=== PATIENT | male | born 1950 | race African-American/Black ===

== ENCOUNTER 2017-03-27 10:58 | Inpatient (IN) | payer MEDICARE, MEDICAID ==
[2017-03-27] VITALS (9 sets, daily range): BP systolic 145–225; BP diastolic 70–96; PULSE 58–95; RESP 16–20; TEMP 97.7–98.4; O2SAT 95–98
[~2017-03-27] VITALS: Ht 175.3 cm; Wt 80.8 kg
[~2017-03-27 10:58] MED LIST: LANTUSP SQ; NOVOLOGP2 SQ; RANI150 PO; VITA100017 PO; VITATAB11 PO; ZOFR4TAB3 SL
[2017-03-27] MEDS ORDERED: NOVOLOGSS SQ (11:14)
[2017-03-27] MEDS ORDERED: VITA10007 PO (11:14)
[2017-03-27] MEDS ORDERED: IBUP800T23 PO (11:14)
[2017-03-27] MEDS ORDERED: LANTUS2P SQ (11:14)
[2017-03-27] MEDS ORDERED: VITATAB11 PO (11:14)
[2017-03-27] MEDS ORDERED: MORPHINE SULFATE 4 MG/ML INJ IV PUSH ONE ×3 (12:00→17:00)
[2017-03-27] MEDS ORDERED: ASPIRIN 325 MG TAB PO ONE (12:00)
[2017-03-27] MEDS: SODIUM CHLORIDE 0.9% FLUSH 10 ML FLUSH IVF PRN ×2 (12:15→13:37)
[2017-03-27 12:41] LABS: AUTOMATED NEUTROPHIL # 3.2 TH/MM3 (1.8-7.7); BASOPHIL # 0.1 TH/MM3 (0-0.2); BASOPHIL % 0.9 % (0.0-2.0); EOSINOPHIL # 0.3 TH/MM3 (0-0.4); EOSINOPHIL % 4.5 % (0.0-4.0); HEMATOCRIT 41.1 % (39.0-51.0); HEMO FLAGS DIFF FINAL; LYMPH % 32.2 % (9.0-44.0); MEAN CELL VOLUME 83.3 FL (80.0-100.0); MEAN CORPUSCULAR HEMOGLOBIN 29.1 PG (27.0-34.0); MEAN CORPUSCULAR HGB CONC 34.9 % (32.0-36.0); MONO % 10.3 % (0.0-8.0); NEUT % 52.1 % (16.0-70.0); PLATELET COUNT 180 TH/MM3 (150-450); RED BLOOD COUNT 4.93 MIL/MM3 (4.50-5.90); RED CELL DISTRIBUTION WIDTH 13.5 % (11.6-17.2); WHITE BLOOD COUNT 6.1 TH/MM3 (4.0-11.0)
[2017-03-27 12:48] LABS: APTT (PATIENT) 25.3 SEC (24.3-30.1); PROTHROMBIN TIME - PATIENT 10.9 SEC (9.8-11.6)
[2017-03-27 13:00] LABS: BICARBONATE 26.1 MEQ/L (21.0-32.0); POTASSIUM 3.7 MEQ/L (3.5-5.1)
--- NOTE | 2017-03-27 13:52 | PD ---
HPI Chief Complaint: Musculoskeletal Complaint Time Seen by Provider: 11:32 Travel History International Travel<30 days: No Contact w/Intl Traveler<30days: No Traveled to known affect area: No History of Present Illness HPI The patient 67. He has had right lower extremity pain for a few months. It is now constant. It's worse with palpation. He feels pain from the middle portion of the left calf to the great toe. He's had no trauma. He denies a smoking history. He is diabetic. Pain is worse with ambulation. Patient is somewhat reserved and slow to answer questions in much detail thereby limiting history of present illness somewhat initially. 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) Cardiac Surgery: No Ear Surgery: No Endocrine Surgery: No Eye Surgery: No Genitourinary Surgery: No Gynecologic Surgery: No Oral Surgery: No Pacemaker: No Thoracic Surgery: No Other Surgery: Yes Social History Alcohol Use: Yes (RARELY) Tobacco Use: No Substance Use: No Allergies-Medications (Allergen,Severity, Reaction): Coded Allergies: No Known Allergies (Unverified , 03/27/17) Reported Meds & Prescriptions Reported Meds & Active Scripts Active Reported Ibuprofen 800 Mg Tab 800 Mg PO Q6HR PRN Lantus Inj (Insulin Glargine) 1,000 Unit/10 Ml Vial 15 Units SQ HS Novolog Inj (Insulin Aspart) 100 Unit/Ml Inj 30 Unit SQ BID Vitamin B Complex (B-Complex Vitamins) 1 Tab 1 Tab PO DAILY Vitamin C (Ascorbic Acid) 1,000 Mg Tab 3,000 Mg PO DAILY Review of Systems Except as stated in HPI: all other systems reviewed are Neg General / Constitutional: No: Fever Musculoskeletal: Positive: Pain Physical Exam Narrative GENERAL: 67-year-old male well-nourished well-developed no acute distress SKIN: Focused skin assessment warm/dry. HEAD: Atraumatic. Normocephalic. EYES: Pupils equal and round. No scleral icterus. No injection or drainage. ENT: No nasal bleeding or discharge. Mucous membranes pink and moist. NECK: Trachea midline. No JVD. CARDIOVASCULAR: Regular rate and rhythm. No murmur appreciated. RESPIRATORY: No accessory muscle use. Clear to auscultation. Breath sounds equal bilaterally. GASTROINTESTINAL: Abdomen soft, non-tender, nondistended. Hepatic and splenic margins not palpable. MUSCULOSKELETAL: No obvious deformities. No clubbing. No cyanosis. No edema. There is a palpable dorsalis pedis pulse on the right side. On the left side there is a palpable posterior tibialis pulse however there is no palpable dorsalis pedis pulse on the left side. The pulse is dopplerable at the right dorsalis pedis however on the left dorsal foot there is no audible pulse. On the left side there is a palpable posterior tibialis and palpable femoral artery pulse. The skin of both lower extremities is somewhat shiny. There is no warmth erythema or asymmetric swelling on either side. NEUROLOGICAL: Awake and alert. No obvious cranial nerve deficits. Motor grossly within normal limits. Normal speech. PSYCHIATRIC: Appropriate mood and affect; insight and judgment normal. Data Data Last Documented VS Vital Signs Date Time Temp Pulse Resp B/P Pulse Ox O2 Delivery O2 Flow Rate FiO2 03/27/17 13:30 73 19 171/90 95 Room Air 03/27/17 10:59 98.4 Vs reviewed Orders Basic Metabolic Panel (Bmp) (03/27/17 11:56) Complete Blood Count With Diff (03/27/17 11:56) Prothrombin Time / Inr (Pt) (03/27/17 11:56) Act Partial Throm Time (Ptt) (03/27/17 11:56) Ecg Monitoring (03/27/17 11:56) Iv Access Insert/Monitor (03/27/17 11:56) Oximetry (03/27/17 11:56) Oxygen Administration (03/27/17 11:56) Aspirin (Aspirin) (03/27/17 12:00) Morphine Inj (Morphine Inj) (03/27/17 12:00) Sodium Chloride 0.9% Flush (Ns Flush) (03/27/17 12:00) Cta Runoff W Iv Contrast W 3d (03/27/17 ) Morphine Inj (Morphine Inj) (03/27/17 13:30) Iohexol 350 Inj (Omnipaque 350 Inj) (03/27/17 14:51) Labs Laboratory Tests Test 03/27/17 12:20 White Blood Count 6.1 TH/MM3 Red Blood Count 4.93 MIL/MM3 Hemoglobin 14.4 GM/DL Hematocrit 41.1 % Mean Corpuscular Volume 83.3 FL Mean Corpuscular Hemoglobin 29.1 PG Mean Corpuscular Hemoglobin 34.9 % Concent Red Cell Distribution Width 13.5 % Platelet Count 180 TH/MM3 Mean Platelet Volume 8.7 FL Neutrophils (%) (Auto) 52.1 % Lymphocytes (%) (Auto) 32.2 % Monocytes (%) (Auto) 10.3 % Eosinophils (%) (Auto) 4.5 % Basophils (%) (Auto) 0.9 % Neutrophils # (Auto) 3.2 TH/MM3 Lymphocytes # (Auto) 2.0 TH/MM3 Monocytes # (Auto) 0.6 TH/MM3 Eosinophils # (Auto) 0.3 TH/MM3 Basophils # (Auto) 0.1 TH/MM3 CBC Comment DIFF FINAL Differential Comment Prothrombin Time 10.9 SEC Prothromb Time International 1.0 RATIO Ratio Activated Partial 25.3 SEC Thromboplast Time Sodium Level 140 MEQ/L Potassium Level 3.7 MEQ/L Chloride Level 105 MEQ/L Carbon Dioxide Level 26.1 MEQ/L Anion Gap 9 MEQ/L Blood Urea Nitrogen 14 MG/DL Creatinine 0.97 MG/DL Estimat Glomerular Filtration 93 ML/MIN Rate Random Glucose 167 MG/DL Calcium Level 9.3 MG/DL [facility] Medical Decision Making Medical Screen Exam Complete: Yes Emergency Medical Condition: Yes Medical Record Reviewed: Yes Differential Diagnosis Claudication, embolic disease, anemia, neuropathy Narrative Course CBC & BMP Diagram 03/27/17 12:20 INR 1.0 Carlos Keller MD March 27, 2017 13:52
[2017-03-27] MEDS ORDERED: IOHEXOL 350 MG/ML 10 ML VIAL (for RAD DIAG) IV ONE (14:51)
[2017-03-27] MEDS ORDERED: HEPARIN SODIUM - IV 10,000 UNITS/10 ML VIAL IV ONE ×2 (16:45→18:00)
[2017-03-27] MEDS ORDERED: HEPARIN-D5W INJ 250 ML IV SCH ×2 (16:45→18:00)
--- NOTE | 2017-03-27 17:18 | PD ---
Physical Exam Date Seen by Provider: March 27, 2017 Data Data Last Documented VS Vital Signs Date Time Temp Pulse Resp B/P Pulse Ox O2 Delivery O2 Flow Rate FiO2 03/27/17 18:01 65 20 163/85 97 Room Air 03/27/17 10:59 98.4 Orders Basic Metabolic Panel (Bmp) (03/27/17 11:56) Complete Blood Count With Diff (03/27/17 11:56) Prothrombin Time / Inr (Pt) (03/27/17 11:56) Act Partial Throm Time (Ptt) (03/27/17 11:56) Ecg Monitoring (03/27/17 11:56) Iv Access Insert/Monitor (03/27/17 11:56) Oximetry (03/27/17 11:56) Oxygen Administration (03/27/17 11:56) Aspirin (Aspirin) (03/27/17 12:00) Morphine Inj (Morphine Inj) (03/27/17 12:00) Sodium Chloride 0.9% Flush (Ns Flush) (03/27/17 12:00) Cta Runoff W Iv Contrast W 3d (03/27/17 ) Morphine Inj (Morphine Inj) (03/27/17 13:30) Iohexol 350 Inj (Omnipaque 350 Inj) (03/27/17 14:51) Heparin Inj (Heparin Inj) (03/27/17 16:45) Heparin Inj (Heparin Inj) (03/27/17 22:45) Heparin Inj (Heparin Inj) (03/27/17 22:45) Heparin-D5w Inj (Heparin-D5w Inj) (03/27/17 16:45) Morphine Inj (Morphine Inj) (03/27/17 17:00) Heparin Inj (Heparin Inj) (03/27/17 18:00) Heparin-D5w Inj (Heparin-D5w Inj) (03/27/17 18:00) Act Partial Throm Time (Ptt) (03/27/17 17:47) Prothrombin Time / Inr (Pt) (03/27/17 17:47) Cbc No Diff, Includes Plts (03/27/17 17:47) Act Partial Throm Time (Ptt) (03/28/17 00:47) Occult Blood (Hemoccult) Stool (03/27/17 17:47) Consult Vascular Surgery (03/27/17 ) (Hub Use Only)Inp Phy Cons/Ref (03/27/17 ) Insulin Human Reg Supp Scale (Novolin R (03/27/17 21:00) Dextrose 50% In John (Vial) Inj (D50w (Vi (03/27/17 18:30) Glucagon Inj (Glucagon Inj) (03/27/17 18:30) Admit To Inpatient (03/27/17 ) Code Status (03/27/17 18:24) Vital Signs (Adult) Q4H (03/27/17 18:24) Activity Oob Ad Kate (03/27/17 18:24) Bedside Glucose BELKIS.AC&HS (03/27/17 18:24) Diet Npo (03/27/17 Dinner) Sodium Chlor 0.9% 1000 Ml Inj (Ns 1000 M (03/27/17 18:24) Sodium Chloride 0.9% Flush (Ns Flush) (03/27/17 18:30) Sodium Chloride 0.9% Flush (Ns Flush) (03/27/17 21:00) Acetaminophen (Tylenol) (03/27/17 18:30) Ondansetron Inj (Zofran Inj) (03/27/17 18:30) Bisacodyl Supp (Dulcolax Supp) (03/27/17 18:30) Docusate Sodium (Colace) (03/27/17 18:30) Basic Metabolic Panel (Bmp) (03/28/17 06:00) Complete Blood Count With Diff (03/28/17 06:00) Prothrombin Time / Inr (Pt) (03/28/17 06:00) Resp Oxygen Samir C Titrat 1-4 L (03/27/17 ) Naloxone Inj (Narcan Inj) (03/27/17 18:30) Inpatient Certification (03/27/17 ) Labs Laboratory Tests Test 03/27/17 12:20 White Blood Count 6.1 TH/MM3 Red Blood Count 4.93 MIL/MM3 Hemoglobin 14.4 GM/DL Hematocrit 41.1 % Mean Corpuscular Volume 83.3 FL Mean Corpuscular Hemoglobin 29.1 PG Mean Corpuscular Hemoglobin 34.9 % Concent Red Cell Distribution Width 13.5 % Platelet Count 180 TH/MM3 Mean Platelet Volume 8.7 FL Neutrophils (%) (Auto) 52.1 % Lymphocytes (%) (Auto) 32.2 % Monocytes (%) (Auto) 10.3 % Eosinophils (%) (Auto) 4.5 % Basophils (%) (Auto) 0.9 % Neutrophils # (Auto) 3.2 TH/MM3 Lymphocytes # (Auto) 2.0 TH/MM3 Monocytes # (Auto) 0.6 TH/MM3 Eosinophils # (Auto) 0.3 TH/MM3 Basophils # (Auto) 0.1 TH/MM3 CBC Comment DIFF FINAL Differential Comment Prothrombin Time 10.9 SEC Prothromb Time International 1.0 RATIO Ratio Activated Partial 25.3 SEC Thromboplast Time Sodium Level 140 MEQ/L Potassium Level 3.7 MEQ/L Chloride Level 105 MEQ/L Carbon Dioxide Level 26.1 MEQ/L Anion Gap 9 MEQ/L Blood Urea Nitrogen 14 MG/DL Creatinine 0.97 MG/DL Estimat Glomerular Filtration 93 ML/MIN Rate Random Glucose 167 MG/DL Calcium Level 9.3 MG/DL [facility] Medical Record Reviewed: Yes Supervised Visit with JESSY: No Interpretation(s) Vital Signs Date Time Temp Pulse Resp B/P Pulse Ox O2 Delivery O2 Flow Rate FiO2 03/27/17 15:35 62 17 145/70 98 Room Air 03/27/17 13:30 73 19 171/90 95 Room Air 03/27/17 12:20 96 Room Air 03/27/17 12:20 17 03/27/17 12:20 17 96 Room Air 03/27/17 10:59 98.4 95 20 187/90 97 Room Air Laboratory Tests Test 03/27/17 12:20 White Blood Count 6.1 TH/MM3 (4.0-11.0) Red Blood Count 4.93 MIL/MM3 (4.50-5.90) Hemoglobin 14.4 GM/DL (13.0-17.0) Hematocrit 41.1 % (39.0-51.0) Mean Corpuscular Volume 83.3 FL (80.0-100.0) Mean Corpuscular Hemoglobin 29.1 PG (27.0-34.0) Mean Corpuscular Hemoglobin 34.9 % Concent (32.0-36.0) Red Cell Distribution Width 13.5 % (11.6-17.2) Platelet Count 180 TH/MM3 (150-450) Mean Platelet Volume 8.7 FL (7.0-11.0) Neutrophils (%) (Auto) 52.1 % (16.0-70.0) Lymphocytes (%) (Auto) 32.2 % (9.0-44.0) Monocytes (%) (Auto) 10.3 % (0.0-8.0) Eosinophils (%) (Auto) 4.5 % (0.0-4.0) Basophils (%) (Auto) 0.9 % (0.0-2.0) Neutrophils # (Auto) 3.2 TH/MM3 (1.8-7.7) Lymphocytes # (Auto) 2.0 TH/MM3 (1.0-4.8) Monocytes # (Auto) 0.6 TH/MM3 (0-0.9) Eosinophils # (Auto) 0.3 TH/MM3 (0-0.4) Basophils # (Auto) 0.1 TH/MM3 (0-0.2) CBC Comment DIFF FINAL Differential Comment Prothrombin Time 10.9 SEC (9.8-11.6) Prothromb Time International 1.0 RATIO Ratio Activated Partial 25.3 SEC Thromboplast Time (24.3-30.1) Sodium Level 140 MEQ/L (136-145) Potassium Level 3.7 MEQ/L (3.5-5.1) Chloride Level 105 MEQ/L (98-107) Carbon Dioxide Level 26.1 MEQ/L (21.0-32.0) Anion Gap 9 MEQ/L (5-15) Blood Urea Nitrogen 14 MG/DL (7-18) Creatinine 0.97 MG/DL (0.60-1.30) Estimat Glomerular Filtration 93 ML/MIN (>89) Rate Random Glucose 167 MG/DL (74-106) Calcium Level 9.3 MG/DL (8.5-10.1) Narrative Course Patient signed out to me by Dr. Keller, patient pending CTA, admission to the hospital and vascular surgery consult. Patient is a 67 year old male with history of diabetes currently being treated on insulin, presents to emergency room with complaints of pains to his leftlower extremity for the past 2 months. Patient reports that pain has been constant, reports that today, he decided to be evaluated as he can't take the pain. Patient reports that pain is worse in left right big toe. On evaluation, there is no palpable pulses to his left lower extremity. Patient is currently pending CTA, vascular surgery consult as well as admission to hospitalist. Last Impressions Aorta w/Runoff CTA 03/27/17 0000 Signed Impressions: Service Date/Time: , March 27, 2017 14:33 - CONCLUSION: Moderate to severe lower extremity atherosclerotic vascular disease. Segmental occlusion of the distal left superficial femoral artery. Moderate to severe segmental stenosis of the mid to distal left popliteal artery. Right SFA plaques with moderate stenoses. Severe infrapopliteal runoff disease with single vessel runoff seen bilaterally as described. Costa Chen MD Case reviewed with Dr. Kasper who will see patient in consult. Call made to medicine service for admission case reviewed with Dr. Salcedo who accepts pt to service Diagnosis Primary Impression: Superficial femoral artery occlusion Admitting Information Admitting Physician Requests: Admit Mirna Xie DO March 27, 2017 17:18
--- NOTE | 2017-03-27 17:26 | RADRPT ---
EXAM DATE/TIME: 03/27/2017 14:33 [facility] COMPARISON: No previous studies available for comparison. INDICATIONS : Left leg pain. IV CONTRAST: 99 cc Omnipaque 350 (iohexol) IV RADIATION DOSE: 8.07 CTDIvol (mGy) MEDICAL HISTORY : Diabetes mellitus type 2. SURGICAL HISTORY : None. ENCOUNTER: Initial ACUITY: 1 day PAIN SCALE: 6/10 LOCATION: Left lower leg. TECHNIQUE: Volumetric scanning was performed using a multi-row detector CT scanner. The data was post processed with a variety of visualization algorithms including full volume maximum intensity projection, multi -planar sliding thin slab reformation, curved planar reformation, and surface rendering techniques. Using automated exposure control and adjustment of the mA and/or kV according to patient size, radiat ion dose was kept as low as reasonably achievable to obtain optimal diagnostic quality images. FINDINGS: ABDOMINAL AORTA: Moderate calcific atherosclerotic vascular disease is seen throughout the abdominal aorta. Smooth andrez rowing of the celiac artery at its origin secondary to the arcuate ligament. The superior mesenteric artery is widely patent. 2 renal arteries are identified each kidney. There is a main renal artery an d an accessory renal artery to each kidney. The left main renal artery demonstrates mild narrowing at its origin. BIFURCATION: Calcified but patent. RIGHT PELVIS: Mild to moderate eccentric calcified plaque is present. There is no evidence of significant stenosis involving the right common or external iliac arteries. LEFT PELVIS: Mild to moderate eccentric calcified plaque is present. There is no evidence of significant stenosis involving the right common or external iliac arteries. RIGHT THIGH: Moderate described changes are seen in the femoral vessels. There are focal moderate stenotic lesions identified at the origin the SFA, proximal SFA and distal SFA which are in the 50-60% diameter steno tic range. LEFT THIGH: Moderate to severe heart disease is present in the left femoral vessels. There is no more regularity with mild stenotic lesions throughout the proximal to mid SFA. Segmental occlusion of the distal SFA at the adductor canal is identified. The fluid segment is approximately 4 cm in length. There is mika nstitution of the proximal popliteal artery. RIGHT KNEE: The right popliteal artery is small but otherwise patent. LEFT KNEE: Proximal left 2 arteries patent. There is marked severe segmental narrowing of the mid and distal pop liteal artery. RIGHT LEG: Single-vessel runoff consisting of the peroneal artery. The distal peroneal artery provides collatera l flow to the mid to distal left posterior tibial artery. The anterior tibial artery is occluded prox imally. LEFT LEG: Single-vessel runoff consisting of the posterior tibial artery is identified. Extensive occlusive dis ease is identified in the peroneal and anterior tibial arteries. CONCLUSION: Moderate to severe lower extremity atherosclerotic vascular disease. Segmental occlusion of the distal left superficial femoral artery. Moderate to severe segmental stenosis of the mid to distal left popliteal artery. Right SFA plaques with moderate stenoses. Severe infrapopliteal runoff disease with single vessel runoff seen bilaterally as described. Costa Chen MD on March 27, 2017 at 17:05 Board Certified Radiologist. This report was verified electronically.
[2017-03-27] MEDS ORDERED: NALOXONE HCL 0.4 MG/ML AMP IV PRN (18:30)
[2017-03-27] MEDS ORDERED: ACETAMINOPHEN 325 MG TAB PO PRN (18:30)
[2017-03-27] MEDS ORDERED: BISACODYL 10 MG SUPP RECTAL PRN (18:30)
[2017-03-27] MEDS ORDERED: GLUCAGON 1 MG/ML VIAL OTHER PRN (18:30)
[2017-03-27] MEDS ORDERED: SODIUM CHLORIDE 0.9% FLUSH 10 ML FLUSH IV FLUSH PRN (18:30)
[2017-03-27] MEDS ORDERED: ONDANSETRON HCL 4 MG/2 ML VIAL IVP PRN (18:30)
[2017-03-27] MEDS ORDERED: DEXTROSE 50% IN WATER 50 ML VIAL(D50) IV PUSH PRN (18:30)
--- NOTE | 2017-03-27 18:32 | HHI.HP ---
[facility] Unknown Admission Diagnosis SFA Occlusion Diagnoses: Chief Complaint: left leg pain/Claudication Travel History International Travel<30 Days: No Contact w/Intl Traveler <30 Da: No Traveled to Known Affected Are: No History of Present Illness This is a pleasant 67 y/o Male who came to ER with Right Lower extremity pain for a few month, now is constant pain, worse on palpation Middle portion of the left calf to the great toe, no trauma, denies smoking history but has Diabetes mellitus II, pain worse on ambulation as per patient he has pain on his left leg for the last two months, worsening Claudication, today decided to come to ER for Evaluation status post Run off found Moderate to Severe lower extremity atherosclerotic vascular disease, segmental occlusion of the Distal left superficial femoral artery, Moderate to severe segmental stenosis of the mid to distal left popliteal artery, Right SFA plaques with moderate stenosis. seen by Vascular water rights specialist for Angiography and Balloon angioplasty and stent placement. 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 Reported Medications Reported Meds & Active Scripts Active Reported Ibuprofen 800 Mg Tab 800 Mg PO Q6HR PRN Lantus Inj (Insulin Glargine) 1,000 Unit/10 Ml Vial 15 Units SQ HS Novolog Inj (Insulin Aspart) 100 Unit/Ml Inj 30 Unit SQ BID Vitamin B Complex (B-Complex Vitamins) 1 Tab 1 Tab PO DAILY Vitamin C (Ascorbic Acid) 1,000 Mg Tab 3,000 Mg PO DAILY Allergies: Coded Allergies: No Known Allergies (Unverified , 03/27/17) Active Ordered Medications Current Medications Medications (Trade) Dose Ordered Sig/Marita Route Start Time Stop Time Status Last Admin (Heparin-D5W Inj) 250 ml @ 0 mls/hr TITRATE IV 03/27/17 18:00 03/27/17 17:59 (D50w (Vial) Inj) 25 ml UNSCH PRN IV PUSH 03/27/17 18:30 Glucagon 1 mg 1 mg UNSCH PRN OTHER 03/27/17 18:30 (NS 1000 ml Inj) 1,000 ml @ 100 mls/hr Q10H IV 03/27/17 18:24 (NS Flush) 2 ml UNSCH PRN IV FLUSH 03/27/17 18:30 (NS Flush) 2 ml BID IV FLUSH 03/27/17 21:00 (Tylenol) 650 mg Q4H PRN PO 03/27/17 18:30 (Zofran Inj) 4 mg Q6H PRN IVP 03/27/17 18:30 (Dulcolax Supp) 10 mg DAILY PRN RECTAL 03/27/17 18:30 (Colace) 100 mg Q12H PO 03/27/17 21:00 (Narcan Inj) 0.4 mg UNSCH PRN IV 03/27/17 18:30 Family History Father with DM II Social History Occasional alcohol abuse Marijuana abuse Physical Exam Vital Signs Vital Signs Date Time Temp Pulse Resp B/P Pulse Ox O2 Delivery O2 Flow Rate FiO2 03/27/17 18:01 65 20 163/85 97 Room Air 03/27/17 15:35 62 17 145/70 98 Room Air 03/27/17 13:30 73 19 171/90 95 Room Air 03/27/17 12:20 96 Room Air 03/27/17 12:20 17 03/27/17 12:20 17 96 Room Air 03/27/17 10:59 98.4 95 20 187/90 97 Room Air Physical Exam GENERAL: No acute distress. SKIN: Focused skin assessment warm/dry. HEAD: Atraumatic. Normocephalic. EYES: Pupils equal and round. No scleral icterus. No injection or drainage. ENT: No nasal bleeding or discharge. Mucous membranes pink and moist. NECK: Trachea midline. No JVD. CARDIOVASCULAR: Regular rate and rhythm. No murmur appreciated. RESPIRATORY: No accessory muscle use. Clear to auscultation. Breath sounds equal bilaterally. GASTROINTESTINAL: Abdomen soft, non-tender, nondistended. Hepatic and splenic margins not palpable. MUSCULOSKELETAL: No obvious deformities. No clubbing. No cyanosis. No edema. There is a palpable dorsalis pedis pulse on the right side. On the left side there is a palpable posterior tibialis pulse however there is no palpable dorsalis pedis pulse on the left side. The skin of both lower extremities is somewhat shiny. There is no warmth erythema or asymmetric swelling on either side. NEUROLOGICAL: Awake and alert. No obvious cranial nerve deficits. Motor grossly within normal limits. Normal speech. PSYCHIATRIC: Appropriate mood and affect; insight and judgment normal. Laboratory Laboratory Tests Test 03/27/17 12:20 White Blood Count 6.1 Red Blood Count 4.93 Hemoglobin 14.4 Hematocrit 41.1 Mean Corpuscular Volume 83.3 Mean Corpuscular Hemoglobin 29.1 Mean Corpuscular Hemoglobin 34.9 Concent Red Cell Distribution Width 13.5 Platelet Count 180 Mean Platelet Volume 8.7 Neutrophils (%) (Auto) 52.1 Lymphocytes (%) (Auto) 32.2 Monocytes (%) (Auto) 10.3 Eosinophils (%) (Auto) 4.5 Basophils (%) (Auto) 0.9 Neutrophils # (Auto) 3.2 Lymphocytes # (Auto) 2.0 Monocytes # (Auto) 0.6 Eosinophils # (Auto) 0.3 Basophils # (Auto) 0.1 CBC Comment DIFF FINAL Differential Comment Prothrombin Time 10.9 Prothromb Time International 1.0 Ratio Activated Partial 25.3 Thromboplast Time Sodium Level 140 Potassium Level 3.7 Chloride Level 105 Carbon Dioxide Level 26.1 Anion Gap 9 Blood Urea Nitrogen 14 Creatinine 0.97 Estimat Glomerular Filtration 93 Rate Random Glucose 167 Calcium Level 9.3 Result Diagram: 03/27/17 1220 03/27/17 1220 Imaging Last Impressions Aorta w/Runoff CTA 03/27/17 0000 Signed Impressions: Service Date/Time: March 14:33 - CONCLUSION: Moderate to severe lower extremity atherosclerotic vascular disease. Segmental occlusion of the distal left superficial femoral artery. Moderate to severe segmental stenosis of the mid to distal left popliteal artery. Right SFA plaques with moderate stenoses. Severe infrapopliteal runoff disease with single vessel runoff seen bilaterally as described. Costa Chen MD Assessment and Plan Assessment and Plan 1. 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 Moderate to Severe segmental stenosis of the mid to distal left popliteal artery. discussed at this time with Vascular insurance law specialist doctor David Kasper and recommended to stop Heparin and continue Plavix and Aspirin, will Schedule for surgery Next Friday03/31/17 Angiography with Balloon angioplasty and stent placement Poor residential prognosis, may end in BKA. full Cardiac workup continue. 2. DM II to continue sliding scale Hemoglobin A1C 3. Peripheral Neuropathy DVT prophylaxis with Lovenox Code Status Full code Discussed Condition With Patient, ER specialist I had the Pleasure to talk about this case, receive input and recommendations by Vascular [facility] Physician Doctor David Ham. Physician Certification 2 Midnight Certification Type: Admission for Inpatient Services Order for Inpatient Services The services are ordered in accordance with Medicare regulations or non- Medicare payer requirements, as applicable. In the case of services not specified as inpatient-only, they are appropriately provided as inpatient services in accordance with the 2-midnight benchmark. Estimated LOS (days): 3 days is the estimated time the patient will need to remain in the hospital, assuming treatment plan goals are met and no additional complications. Post-Hospital Plan: Not yet determined Vaibhav Devine MD March 27, 2017 18:32
--- NOTE | 2017-03-27 19:29 | PD.CAR.PN ---
CVT Progress Note Subjective/Hospital Course: Patient evaluated and examined Full consult dictated Thanks J Objective: Vital Signs Date Time Temp Pulse Resp B/P Pulse Ox O2 Delivery O2 Flow Rate FiO2 03/27/17 19:22 61 18 188/96 98 Room Air 03/27/17 18:46 97 21 03/27/17 18:01 65 20 163/85 97 Room Air 03/27/17 15:35 62 17 145/70 98 Room Air 03/27/17 13:30 73 19 171/90 95 Room Air 03/27/17 12:20 96 Room Air 03/27/17 12:20 17 03/27/17 12:20 17 96 Room Air 03/27/17 10:59 98.4 95 20 187/90 97 Room Air Labs: Laboratory Tests Test 03/27/17 12:20 White Blood Count 6.1 TH/MM3 (4.0-11.0) Red Blood Count 4.93 MIL/MM3 (4.50-5.90) Hemoglobin 14.4 GM/DL (13.0-17.0) Hematocrit 41.1 % (39.0-51.0) Mean Corpuscular Volume 83.3 FL (80.0-100.0) Mean Corpuscular Hemoglobin 29.1 PG (27.0-34.0) Mean Corpuscular Hemoglobin 34.9 % Concent (32.0-36.0) Red Cell Distribution Width 13.5 % (11.6-17.2) Platelet Count 180 TH/MM3 (150-450) Mean Platelet Volume 8.7 FL (7.0-11.0) Neutrophils (%) (Auto) 52.1 % (16.0-70.0) Lymphocytes (%) (Auto) 32.2 % (9.0-44.0) Monocytes (%) (Auto) 10.3 % (0.0-8.0) Eosinophils (%) (Auto) 4.5 % (0.0-4.0) Basophils (%) (Auto) 0.9 % (0.0-2.0) Neutrophils # (Auto) 3.2 TH/MM3 (1.8-7.7) Lymphocytes # (Auto) 2.0 TH/MM3 (1.0-4.8) Monocytes # (Auto) 0.6 TH/MM3 (0-0.9) Eosinophils # (Auto) 0.3 TH/MM3 (0-0.4) Basophils # (Auto) 0.1 TH/MM3 (0-0.2) CBC Comment DIFF FINAL Differential Comment Prothrombin Time 10.9 SEC (9.8-11.6) Prothromb Time International 1.0 RATIO Ratio Activated Partial 25.3 SEC Thromboplast Time (24.3-30.1) Sodium Level 140 MEQ/L (136-145) Potassium Level 3.7 MEQ/L (3.5-5.1) Chloride Level 105 MEQ/L (98-107) Carbon Dioxide Level 26.1 MEQ/L (21.0-32.0) Anion Gap 9 MEQ/L (5-15) Blood Urea Nitrogen 14 MG/DL (7-18) Creatinine 0.97 MG/DL (0.60-1.30) Estimat Glomerular Filtration 93 ML/MIN (>89) Rate Random Glucose 167 MG/DL (74-106) Calcium Level 9.3 MG/DL (8.5-10.1) Result Diagram: 03/27/17 1220 03/27/17 1220 David Kasper MD March 27, 2017 19:29
[2017-03-27] MEDS: SODIUM CHLOR 0.9% 1000 ML INJ 1,000 ML IV SCH (19:44)
--- NOTE | 2017-03-27 19:54 | MB ---
cc: MD KRISTOPHER,BANNER DATE OF CONSULTATION: 03/27/2017. REASON FOR CONSULTATION: Peripheral vascular disease and ischemia of the left leg. HISTORY OF PRESENT ILLNESS: This 67-year-old black male comes to the emergency room stating that for about two months he has had pain in his left foot. He states that after about 20 to 25 years, the calf tightens up and he cannot walk any further consistent with a severe claudication. The patient is a severe known diabetic and is not very compliant with his care. He smokes pot. PAST MEDICAL HISTORY: The past medical history is that of: 1. Diabetes mellitus. He takes Lantus and NovoLog for his diabetes. 2. Hypertension. The patient is not treating is hypertension. PAST SURGICAL HISTORY: Partial gastrectomy for a GIST tumor at some point in the past, the patient does not exactly know when SOCIAL HISTORY: The patient drinks socially. He uses pot. PHYSICAL EXAMINATION: GENERAL: The physical examination reveals a 67-year-old male in no acute distress. HEAD, EYES, EARS, NOSE, THROAT: Normocephalic. No trauma to the head. Pupils equal and reactive. Extraocular muscles intact. NECK: The neck is supple. Bilateral carotid pulses. Bilateral carotid bruits 3/6. CHEST: Bilateral breath sounds. HEART: Regular rhythm. No murmurs. ABDOMEN: Abdomen is soft. No rebound or guarding. No masses. Scars from previous surgery. The patient has no masses in the anterior abdominal wall or anywhere else that indicate recurrence of his GIST. The groins are normal. EXTREMITIES: The patient actually has palpable femoral pulses and then below the level of the groin there is nothing palpable. On the left side, the patient has a very, very weak popliteal pulse by Doppler and it took a while to detect the posterior tibial pulse very weak. The dorsalis pedis is gone. On the right side, the patient has a popliteal pulse which is a little better than on the left side and then no distal pulses whatsoever, although the foot looks better than on the left foot. There are no ulcerations. NEUROLOGIC: The patient is grossly intact. IMPRESSION AND RECOMMENDATIONS: I reviewed laboratory and diagnostic procedures. The gentleman has severe peripheral vascular disease. His inflow is relatively okay and then coming down to the SFA on the right side the patient has multilevel stenosis of the SFA but no occlusion. The limiting factor on the right is the fact that he only has a peroneal artery runoff to the foot with then some reconstitution over by the foot but this does not look great. On the left side, the patient has again multilevel stenosis of the SFA and then occlusion of the SFA and adductor canal with reconstitution of the popliteal, again the limiting factor is that plus the runoff to the foot via posterior tibial artery which does not look great either with multilevel ratty stenosis. At this point, there are limited options. I explained this to the patient at really length sitting down and multiple times repeating what I told him to make sure he understood. The only option at this point is to try to open up the SFA and somewhat improve the flow on the left side and make it into continuity with the popliteal artery and then the posterior tibial artery. Percutaneous balloon angioplasty would be the best way to go and possibly small stent placement. If that is not successful, the only other option is a bypass femoral-to- popliteal; however, with a one-vessel runoff to the foot via he posterior tibial I would probably venture to do a bypass with in situ vein rather than a graft. Either way, the patient is at high risk of losing his left leg. While we can make some patients better with surgery, there is certainly a small chance that we can make it worse and if the patient embolizes down into his posterior tibial artery, he will for sure lose his leg. I have explained this to the patient at length and he will think about it. At this point, he wants to leave against medical advice, apparently to do something else at a hospital and I am not sure if he is going to be here tomorrow. All things being equal, he should have a cardiac workup. I will order a carotid ultrasound, and then based on all these studies, will decide which way to go, but the above are the only two options. Thank you for the referral. CRITICAL CARE TIME: Forty (40) minutes. David LUNDBERG/CAMACHO /7:26 PM /7:34 PM
[2017-03-27] MEDS: SODIUM CHLORIDE 0.9% FLUSH 10 ML FLUSH IV FLUSH SCH (21:00)
[2017-03-27] MEDS: INSULIN NovoLIN REGULAR SUPPLEMENTAL SCALE SQ SCH (21:00)
[2017-03-27 21:10] LABS: FREE T4 1.08 NG/DL (0.76-1.46); LDL CHOLESTEROL 150 MG/DL (0-99)
--- NOTE | 2017-03-27 21:40 | RADRPT ---
EXAM DATE/TIME: 03/27/2017 21:09 [facility] COMPARISON: No previous studies available for comparison. INDICATIONS : Stenosis. Preop. MEDICAL HISTORY : Diabetes mellitus type 2. Stomach tumor. 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 ENCOUNTER: Initial ACUITY: 2 months PAIN SCORE: 0/10 LOCATION: Bilateral neck PEAK SYSTOLIC VELOCITIES (cm/sec): ICA/CCA RATIO: Right: 1.4 Left: 1.3 ICA: Right: 82 Left: 74 CCA: Right: 57 Left: 58 ECA: Right: 56 Left: 80 VERTEBRAL: Right: 37 antegrade Left: 53 antegrade Elevated flow velocities and ICA/CCA ratios have been found to correlate with increased degrees of vessel stenosis, calculated as percentage of diameter relative to a normal segment of distal ICA/CCA FINDINGS: RIGHT CAROTID: No significant stenosis is visualized. The waveforms are within normal limits. LEFT CAROTID: No significant stenosis is visualized. The waveforms are within normal limits. VERTEBRAL ARTERIES: Antegrade flow is seen in both vertebral arteries. MISCELLANEOUS: None. CONCLUSION: No evidence of flow-limiting carotid stenosis. Andrea Ryan MD on March 27, 2017 at 21:37 Board Certified Radiologist. This report was verified electronically.
[2017-03-27] MEDS ORDERED: HEPARIN SODIUM - IV 10,000 UNITS/10 ML VIAL IV PRN ×2 (22:45)
[2017-03-27 22:49] LABS: HEMOGLOBIN A1a 0.3 %; HEMOGLOBIN A1b 0.5 %; HEMOGLOBIN F 1.2 %
[2017-03-27 22:50] LABS: HEMOGLOBIN Ao 48.6 %; HEMOGLOBIN LA1C 1.7 %; HEMOGLOBIN P3 3.2 %
[2017-03-27] MEDS: DOCUSATE SODIUM 100 MG CAP PO SCH (22:59)
[2017-03-27] MEDS: CLOPIDOGREL 75 MG TAB PO SCH (22:59)
[2017-03-27] MEDS: ENOXAPARIN SODIUM 40 MG/0.4 ML SYRINGE SQ SCH (23:00)
[2017-03-27] MEDS: MORPHINE SULFATE 4 MG/ML INJ IV PUSH PRN (23:47)
[2017-03-28] VITALS (16 sets, daily range): BP systolic 129–201; BP diastolic 59–98; PULSE 65–110; RESP 16–20; TEMP 97.7–98.4; O2SAT 88–97
[2017-03-28] MEDS: SODIUM CHLOR 0.9% 1000 ML INJ 1,000 ML IV SCH (04:24)
[2017-03-28] MEDS: hydrALAZINE HCL 20 MG/ML VIAL IV PUSH PRN ×2 (05:38→06:34)
[2017-03-28] MEDS: MORPHINE SULFATE 4 MG/ML INJ IV PUSH PRN ×5 (06:02→21:25)
[2017-03-28] MEDS: INSULIN NovoLIN REGULAR SUPPLEMENTAL SCALE SQ SCH ×4 (06:29→22:54)
[2017-03-28] MEDS: SODIUM CHLORIDE 0.9% FLUSH 10 ML FLUSH IV FLUSH SCH ×2 (09:00→21:00)
[2017-03-28] MEDS: DOCUSATE SODIUM 100 MG CAP PO SCH ×2 (09:00→21:24)
[2017-03-28 09:36] LABS: AUTOMATED NEUTROPHIL # 2.8 TH/MM3 (1.8-7.7); BASOPHIL % 0.4 % (0.0-2.0); EOSINOPHIL # 0.2 TH/MM3 (0-0.4); EOSINOPHIL % 4.1 % (0.0-4.0); HEMATOCRIT 42.7 % (39.0-51.0); HEMO FLAGS DIFF FINAL; LYMPH % 34.2 % (9.0-44.0); LYMPHOCYTE # 1.8 TH/MM3 (1.0-4.8); MEAN CELL VOLUME 84.9 FL (80.0-100.0); MEAN CORPUSCULAR HGB CONC 34.2 % (32.0-36.0); MONO % 8.4 % (0.0-8.0); NEUT % 52.9 % (16.0-70.0); PLATELET COUNT 173 TH/MM3 (150-450); RED BLOOD COUNT 5.03 MIL/MM3 (4.50-5.90); RED CELL DISTRIBUTION WIDTH 13.7 % (11.6-17.2); WHITE BLOOD COUNT 5.3 TH/MM3 (4.0-11.0)
[2017-03-28 09:45] LABS: PROTHROMBIN TIME - PATIENT 10.6 SEC (9.8-11.6)
[2017-03-28 10:11] LABS: BICARBONATE 25.3 MEQ/L (21.0-32.0); POTASSIUM 3.8 MEQ/L (3.5-5.1)
--- NOTE | 2017-03-28 11:29 | HHI.PR ---
Subjective Remarks This is a pleasant 67 y/o Male who came to ER with Right Lower extremity pain for a few month, now is constant pain, worse on palpation Middle portion of the left calf to the great toe, no trauma, denies smoking history but has Diabetes mellitus II, pain worse on ambulation as per patient he has pain on his left leg for the last two months, worsening Claudication, today decided to come to ER for Evaluation status post Run off found Moderate to Severe lower extremity atherosclerotic vascular disease, segmental occlusion of the Distal left superficial femoral artery, Moderate to severe segmental stenosis of the mid to distal left popliteal artery, Right SFA plaques with moderate stenosis. seen by Vascular habilitation training specialist for Angiography and Balloon angioplasty and stent placement. 03/28: Seen in his bedroom discussed with nurse, no nausea, vomit or diarrhea, continue present care, he is been recommended to be NPO on 03/30/17 fo procedure on 03/31/17 if Cardiac workup permit his intervention. Objective Vital Signs Date Time Temp Pulse Resp B/P Pulse Ox O2 Delivery O2 Flow Rate FiO2 03/28/17 09:04 20 03/28/17 08:04 96 21 03/28/17 08:00 98.2 92 18 178/86 96 03/28/17 08:00 Room Air 03/28/17 07:00 169/87 88 03/28/17 06:45 178/82 91 03/28/17 06:21 186/86 03/28/17 06:05 87 20 186/81 178/82 03/28/17 05:50 86 18 179/84 03/28/17 05:37 65 03/28/17 03:40 Room Air 03/28/17 03:40 97.7 80 16 184/88 94 172/86 03/27/17 23:15 162/81 03/27/17 21:45 97.7 58 16 225/93 96 186/78 03/27/17 21:45 Room Air 03/27/17 19:22 61 18 188/96 98 Room Air 03/27/17 18:46 97 21 03/27/17 18:01 65 20 163/85 97 Room Air 03/27/17 15:35 62 17 145/70 98 Room Air 03/27/17 13:30 73 19 171/90 95 Room Air 03/27/17 12:20 96 Room Air 03/27/17 12:20 17 5/11/17 12:20 17 96 Room Air I/O 03/27/17 03/27/17 03/27/17 03/28/17 03/28/17 03/28/17 06:59 14:59 22:59 06:59 14:59 22:59 Intake Total 240 ml Output Total 400 ml 400 ml 275 ml Balance -400 ml -400 ml -35 ml Intake Oral 240 ml Output Urine Total 400 ml 400 ml 275 ml # Voids 1 1 # Bowel Movements 0 Result Diagram: 03/28/17 0822 03/28/17 0822 Imaging Last Impressions Carotid Artery Ultrasound 03/27/17 0000 Signed Impressions: Service Date/Time: March 21:09 - CONCLUSION: No evidence of flow-limiting carotid stenosis. Andrea Ryan MD Aorta w/Runoff CTA 03/27/17 0000 Signed Impressions: Service Date/Time: March 14:33 - CONCLUSION: Moderate to severe lower extremity atherosclerotic vascular disease. Segmental occlusion of the distal left superficial femoral artery. Moderate to severe segmental stenosis of the mid to distal left popliteal artery. Right SFA plaques with moderate stenoses. Severe infrapopliteal runoff disease with single vessel runoff seen bilaterally as described. Costa Chen MD Procedures No procedures performed. Other Results Laboratory Tests Test 03/27/17 03/28/17 12:20 08:22 Activated Partial 25.3 SEC Thromboplast Time Hemoglobin A1c 8.8 % Triglycerides Level 113 MG/DL Cholesterol Level 222 MG/DL LDL Cholesterol 150 MG/DL HDL Cholesterol 49.0 MG/DL Cholesterol/HDL Ratio 4.53 RATIO Free Thyroxine 1.08 NG/DL Thyroid Stimulating Hormone 5.780 uIU/ML 3rd Gen White Blood Count 5.3 TH/MM3 Red Blood Count 5.03 MIL/MM3 Hemoglobin 14.6 GM/DL Hematocrit 42.7 % Mean Corpuscular Volume 84.9 FL Mean Corpuscular Hemoglobin 29.0 PG Mean Corpuscular Hemoglobin 34.2 % Concent Red Cell Distribution Width 13.7 % Platelet Count 173 TH/MM3 Mean Platelet Volume 8.9 FL Neutrophils (%) (Auto) 52.9 % Lymphocytes (%) (Auto) 34.2 % Monocytes (%) (Auto) 8.4 % Eosinophils (%) (Auto) 4.1 % Basophils (%) (Auto) 0.4 % Neutrophils # (Auto) 2.8 TH/MM3 Lymphocytes # (Auto) 1.8 TH/MM3 Monocytes # (Auto) 0.4 TH/MM3 Eosinophils # (Auto) 0.2 TH/MM3 Basophils # (Auto) 0.0 TH/MM3 CBC Comment DIFF FINAL Differential Comment Prothrombin Time 10.6 SEC Prothromb Time International 1.0 RATIO Ratio Sodium Level 139 MEQ/L Potassium Level 3.8 MEQ/L Chloride Level 104 MEQ/L Carbon Dioxide Level 25.3 MEQ/L Anion Gap 10 MEQ/L Blood Urea Nitrogen 13 MG/DL Creatinine 0.95 MG/DL Estimat Glomerular Filtration 96 ML/MIN Rate Random Glucose 289 MG/DL Calcium Level 8.8 MG/DL Objective Remarks GENERAL: No acute distress. SKIN: Focused skin assessment warm/dry. HEAD: Atraumatic. Normocephalic. EYES: Pupils equal and round. No scleral icterus. No injection or drainage. ENT: No nasal bleeding or discharge. Mucous membranes pink and moist. NECK: Trachea midline. No JVD. CARDIOVASCULAR: Regular rate and rhythm. No murmur appreciated. RESPIRATORY: No accessory muscle use. Clear to auscultation. Breath sounds equal bilaterally. GASTROINTESTINAL: Abdomen soft, non-tender, nondistended. Hepatic and splenic margins not palpable. MUSCULOSKELETAL: No obvious deformities. No clubbing. No cyanosis. No edema. There is a palpable dorsalis pedis pulse on the right side. On the left side there is a palpable posterior tibialis pulse however there is no palpable dorsalis pedis pulse on the left side. The skin of both lower extremities is somewhat shiny. There is no warmth erythema or asymmetric swelling on either side. NEUROLOGICAL: Awake and alert. No obvious cranial nerve deficits. Motor grossly within normal limits. Normal speech. PSYCHIATRIC: Appropriate mood and affect; insight and judgment normal. Medications and IVs Current Medications Medications (Trade) Dose Ordered Sig/Marita Route Start Time Stop Time Status Last Admin (D50w (Vial) Inj) 25 ml UNSCH PRN IV PUSH 03/27/17 18:30 Glucagon 1 mg 1 mg UNSCH PRN OTHER 03/27/17 18:30 (NS 1000 ml Inj) 1,000 ml @ 100 mls/hr Q10H IV 03/27/17 18:24 03/27/17 19:44 (NS Flush) 2 ml UNSCH PRN IV FLUSH 03/27/17 18:30 (NS Flush) 2 ml BID IV FLUSH 03/27/17 21:00 (Tylenol) 650 mg Q4H PRN PO 03/27/17 18:30 (Zofran Inj) 4 mg Q6H PRN IVP 03/27/17 18:30 (Dulcolax Supp) 10 mg DAILY PRN RECTAL 03/27/17 18:30 (Colace) 100 mg Q12H PO 03/27/17 21:00 03/27/17 22:59 (Narcan Inj) 0.4 mg UNSCH PRN IV 03/27/17 18:30 (Plavix) 75 mg DAILY PO 03/27/17 19:45 03/27/17 22:59 (Lovenox Inj) 40 mg Q24H SQ 03/27/17 20:00 03/27/17 23:00 (Morphine Inj) 2 mg Q3H PRN IV PUSH 03/27/17 23:45 03/28/17 08:59 (Apresoline Inj) 10 mg Q30M PRN IV PUSH 03/27/17 23:45 03/28/17 06:34 A/P Assessment and Plan 1. 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 Moderate to Severe segmental stenosis of the mid to distal left popliteal artery. discussed at this time with Vascular merchandising specialist doctor David Kasper and recommended to stop Heparin and continue Plavix and Aspirin, will Schedule for surgery Next Friday03/31/17 Angiography with Balloon angioplasty and stent placement Poor intermodal dispatcher prognosis, may end in BKA. full Cardiac workup continue. 2. DM II to continue sliding scale Hemoglobin A1C 8.8 Poorly controlled DM, continue sliding scale. 3. Peripheral Neuropathy 4. Hyperlipidemia start Pravachol and asked for liver enzymes 5. Tobacco dependence strongly recommended to stop smoking/ Marijuana dependence. DVT prophylaxis with Lovenox Code Status Full code Discussed Condition With Patient and nurse. Vaibhav Devine MD March 28, 2017 11:29
[2017-03-28] MEDS: CLOPIDOGREL 75 MG TAB PO SCH (12:09)
[2017-03-28] MEDS ORDERED: PILL SPLITTER OTHER PRN (12:15)
--- NOTE | 2017-03-28 12:48 | EC ---
Study Study Date:03/28/2017 STUDY CONCLUSIONS SUMMARY LEFT VENTRICLE: The cavity size was normal. Wall thickness was increased in a pattern of mild LVH. Systolic function was normal. The estimated ejection fraction was in the range of 60% to 65%. Wall motion was normal; there were no regional wall motion abnormalities. If LV function is below 40, please consider prescribing an ACEI or ARB or document rationale for non-use. PROCEDURE DATA STUDY STATUS: Elective. Procedure: Transthoracic echocardiography. Image quality was good. Scanning was performed from the parasternal, apical, and subcostal acoustic windows. Study completion: The patient tolerated the procedure well. Transthoracic echocardiography. M-mode, complete 2D, complete spectral Doppler, and color Doppler. Patient status: Inpatient. CARDIAC ANATOMY LEFT VENTRICLE: The cavity size was normal. Wall thickness was increased in a pattern of mild LVH. Systolic function was normal. The estimated ejection fraction was in the range of 60% to 65%. Wall motion was normal; there were no regional wall motion abnormalities. AORTIC VALVE: Trileaflet; normal thickness leaflets. Doppler: Transvalvular velocity was within the normal range. There was no stenosis. No regurgitation. AORTA: Aortic root: The aortic root was normal in size. MITRAL VALVE: Structurally normal valve. Doppler: Transvalvular velocity was within the normal range. There was no evidence for stenosis. No regurgitation. Peak gradient: 3mm Hg (D). LEFT ATRIUM: The atrium was normal in size. RIGHT VENTRICLE: The cavity size was normal. Wall thickness was normal. PULMONIC VALVE: Doppler: Transvalvular velocity was within the normal range. There was no evidence for stenosis. No regurgitation. TRICUSPID VALVE: Structurally normal valve. Doppler: Transvalvular velocity was within the normal range. No regurgitation. PULMONARY ARTERY: The main pulmonary artery was normal-sized. Systolic pressure was within the normal range. RIGHT ATRIUM: The atrium was normal in size. PERICARDIUM: There was no pericardial effusion. SYSTEMIC VEINS: Inferior vena cava: The vessel was normal in size. BASIC MEASUREMENTS ADULT NORMAL Left ventricle LV internal dimension, ED, chordal level, 46 mm 43-52 PLAX LV internal dimension, ES, chordal level, 34.1 mm 23-38 PLAX Fractional shortening, chordal level, PLAX *26 % >29 LV posterior wall thickness, ED 8.74 mm IVS/LVPW ratio, ED *1.6 <1.3 Ventricular septum Septal thickness, ED 14 mm Left atrium Anterior-posterior dimension 34 mm Right ventricle RV internal dimension, ED, PLAX 19.4 mm 19-38 DOPPLER MEASUREMENTS ADULT NORMAL Mitral valve Peak E-wave velocity 81.4 cm/s Peak A-wave velocity 38.3 cm/s Peak gradient, D 3 mm Hg Peak E/A ratio 2.1 Tricuspid valve Regurgitant peak velocity 160 cm/s Peak RV-RA gradient, S 10 mm Hg Maximal regurgitant velocity 160 cm/s LEGEND: Mean values are shown as u=mean value. Asterisk (*) luciano values outside specified normal range. Prepared and signed by Eliseo Gar [id number]
[2017-03-28] MEDS ORDERED: METOPROLOL TARTRATE 25 MG TAB PO SCH (13:00)
--- NOTE | 2017-03-28 13:29 | PD.CAR.PN ---
CVT Progress Note Subjective/Hospital Course: Patient evaluated and examined Full consult dictated Thanks J 03/28/17 Patient with severe vascular occlusive disease and peroneal artery runoff on the right posterior tibial on the left Will probably schedule balloon angioplasty and crossing of the occlusion of the left SFA for Friday in endovascular suite Awaiting results of cardiac echo to make sure patient's condition tolerate general anesthesia Objective: Vital Signs Date Time Temp Pulse Resp B/P Pulse Ox O2 Delivery O2 Flow Rate FiO2 03/28/17 12:19 20 03/28/17 08:04 96 21 03/28/17 08:00 98.2 92 18 178/86 96 03/28/17 08:00 Room Air 03/28/17 07:52 110 03/28/17 07:00 169/87 88 03/28/17 06:45 178/82 91 03/28/17 06:21 186/86 03/28/17 06:05 87 20 186/81 178/82 03/28/17 05:50 86 18 179/84 03/28/17 05:37 65 03/28/17 03:40 Room Air 03/28/17 03:40 97.7 80 16 184/88 94 172/86 03/27/17 23:15 162/81 03/27/17 21:45 97.7 58 16 225/93 96 186/78 03/27/17 21:45 Room Air 03/27/17 19:22 61 18 188/96 98 Room Air 03/27/17 18:46 97 21 03/27/17 18:01 65 20 163/85 97 Room Air 03/27/17 15:35 62 17 145/70 98 Room Air 03/27/17 13:30 73 19 171/90 95 Room Air Labs: Laboratory Tests Test 03/28/17 08:22 White Blood Count 5.3 TH/MM3 (4.0-11.0) Red Blood Count 5.03 MIL/MM3 (4.50-5.90) Hemoglobin 14.6 GM/DL (13.0-17.0) Hematocrit 42.7 % (39.0-51.0) Mean Corpuscular Volume 84.9 FL (80.0-100.0) Mean Corpuscular Hemoglobin 29.0 PG (27.0-34.0) Mean Corpuscular Hemoglobin 34.2 % Concent (32.0-36.0) Red Cell Distribution Width 13.7 % (11.6-17.2) Platelet Count 173 TH/MM3 (150-450) Mean Platelet Volume 8.9 FL (7.0-11.0) Neutrophils (%) (Auto) 52.9 % (16.0-70.0) Lymphocytes (%) (Auto) 34.2 % (9.0-44.0) Monocytes (%) (Auto) 8.4 % (0.0-8.0) Eosinophils (%) (Auto) 4.1 % (0.0-4.0) Basophils (%) (Auto) 0.4 % (0.0-2.0) Neutrophils # (Auto) 2.8 TH/MM3 (1.8-7.7) Lymphocytes # (Auto) 1.8 TH/MM3 (1.0-4.8) Monocytes # (Auto) 0.4 TH/MM3 (0-0.9) Eosinophils # (Auto) 0.2 TH/MM3 (0-0.4) Basophils # (Auto) 0.0 TH/MM3 (0-0.2) CBC Comment DIFF FINAL Differential Comment Prothrombin Time 10.6 SEC (9.8-11.6) Prothromb Time International 1.0 RATIO Ratio Sodium Level 139 MEQ/L (136-145) Potassium Level 3.8 MEQ/L (3.5-5.1) Chloride Level 104 MEQ/L (98-107) Carbon Dioxide Level 25.3 MEQ/L (21.0-32.0) Anion Gap 10 MEQ/L (5-15) Blood Urea Nitrogen 13 MG/DL (7-18) Creatinine 0.95 MG/DL (0.60-1.30) Estimat Glomerular Filtration 96 ML/MIN (>89) Rate Random Glucose 289 MG/DL (74-106) Calcium Level 8.8 MG/DL (8.5-10.1) Result Diagram: 03/28/1782103/28/17821 David Kasper MD March 28, 2017 13:29
[2017-03-28] MEDS: cloNIDine HCL 0.1 MG TAB PO PRN (16:26)
[2017-03-28 19:02] LABS: INDIRECT BILIRUBIN 0.4 MG/DL (0.0-0.8); TOTAL BILIRUBIN ADULT 0.7 MG/DL (0.2-1.0)
[2017-03-28] MEDS: CARVEDILOL 6.25 MG TAB PO SCH (21:24)
[2017-03-28] MEDS: ENOXAPARIN SODIUM 40 MG/0.4 ML SYRINGE SQ SCH (21:24)
[2017-03-28] MEDS: PRAVASTATIN SOD 20 MG TAB PO SCH (21:24)
[2017-03-29] MEDS: MORPHINE SULFATE 4 MG/ML INJ IV PUSH PRN ×7 (02:23→22:52)
[2017-03-29 03:50] VITALS: BP 175/82; PULSE 70; RESP 16; TEMP 98.3; O2SAT 96
[2017-03-29] MEDS: cloNIDine HCL 0.1 MG TAB PO PRN ×2 (04:27→17:43)
[2017-03-29] MEDS: INSULIN NovoLIN REGULAR SUPPLEMENTAL SCALE SQ SCH ×4 (06:30→21:00)
[2017-03-29 08:00] VITALS: PULSE 75
[2017-03-29 08:02] VITALS: BP 174/92; PULSE 78; RESP 18; TEMP 97.8; O2SAT 94
[2017-03-29] MEDS: DOCUSATE SODIUM 100 MG CAP PO SCH ×2 (08:45→20:00)
[2017-03-29] MEDS: CLOPIDOGREL 75 MG TAB PO SCH (08:46)
[2017-03-29] MEDS: CARVEDILOL 6.25 MG TAB PO SCH (08:46)
--- NOTE | 2017-03-29 10:26 | PD.CAR.PN ---
CVT Progress Note Subjective/Hospital Course: Patient evaluated and examined Full consult dictated Thanks J 03/28/17 Patient with severe vascular occlusive disease and peroneal artery runoff on the right posterior tibial on the left Will probably schedule balloon angioplasty and crossing of the occlusion of the left SFA for Friday in endovascular suite Awaiting results of cardiac echo to make sure patient's condition tolerate general anesthesia 03/29/17 Patient with ischemia of the left leg scheduled for Friday endovascular suite balloon angioplasty of the left leg endarterectomy Doing okay at this time To add to the care Objective: Vital Signs Date Time Temp Pulse Resp B/P Pulse Ox O2 Delivery O2 Flow Rate FiO2 03/29/17 08:02 97.8 78 18 174/92 94 03/29/17 03:50 98.3 70 16 175/82 96 03/29/17 03:50 Room Air 03/28/17 23:22 98.0 69 16 146/77 97 03/28/17 23:22 Room Air 03/28/17 20:00 70 03/28/17 19:45 21 03/28/17 19:30 98.1 73 16 129/59 96 03/28/17 19:30 Room Air 03/28/17 19:00 161/77 03/28/17 16:32 20 03/28/17 16:00 98.4 73 20 201/98 96 03/28/17 12:00 98.4 94 20 188/88 96 Result Diagram: 03/28/1782103/28/17821 David Kasper MD March 29, 2017 10:26
[2017-03-29 11:45] VITALS: BP 155/70; PULSE 79; RESP 18; TEMP 98.6; O2SAT 94
[2017-03-29] MEDS ORDERED: CARVEDILOL 6.25 MG TAB PO ONE (12:00)
--- NOTE | 2017-03-29 12:03 | HHI.PR ---
Subjective Remarks This is a pleasant 67 y/o Male who came to ER with Right Lower extremity pain for a few month, now is constant pain, worse on palpation Middle portion of the left calf to the great toe, no trauma, denies smoking history but has Diabetes mellitus II, pain worse on ambulation as per patient he has pain on his left leg for the last two months, worsening Claudication, today decided to come to ER for Evaluation status post Run off found Moderate to Severe lower extremity atherosclerotic vascular disease, segmental occlusion of the Distal left superficial femoral artery, Moderate to severe segmental stenosis of the mid to distal left popliteal artery, Right SFA plaques with moderate stenosis. seen by Vascular cardiovascular invasive specialist for Angiography and Balloon angioplasty and stent placement. 03/29: Stable in his bedroom, increased dosages of Coreg to 12.5 mg bid to try to control his Accelerated Hypertension, also added Statins to his Hyperlipidemia, Discussed with nurse Heaven, ADA diet started, Levemir, scheduled regular insulin with every meal continue medium sliding scale. No nausea, vomit or diarrhea. Objective Vital Signs Date Time Temp Pulse Resp B/P Pulse Ox O2 Delivery O2 Flow Rate FiO2 03/29/17 11:45 98.6 79 18 155/70 94 03/29/17 08:02 97.8 78 18 174/92 94 03/29/17 03:50 98.3 70 16 175/82 96 03/29/17 03:50 Room Air 03/28/17 23:22 98.0 69 16 146/77 97 03/28/17 23:22 Room Air 03/28/17 20:00 70 03/28/17 19:45 21 03/28/17 19:30 98.1 73 16 129/59 96 03/28/17 19:30 Room Air 03/28/17 19:00 161/77 03/28/17 16:32 20 03/28/17 16:00 98.4 73 20 201/98 96 I/O 03/28/17 03/28/17 03/28/17 03/29/17 03/29/17 03/29/17 07:00 15:00 23:00 07:00 15:00 23:00 Intake Total 1016 ml 1670 ml 4001 ml 816 ml Output Total 275 ml 1100 ml 250 ml 650 ml Balance 741 ml 570 ml 3751 ml 166 ml Intake Oral 240 ml 720 ml 3360 ml 240 ml IV Total 776 ml 950 ml 641 ml 576 ml Output Urine Total 275 ml 1100 ml 250 ml 650 ml # Bowel Movements 0 0 0 0 Result Diagram: 03/28/1782103/28/17821 Imaging Last Impressions Carotid Artery Ultrasound 03/27/17 0000 Signed Impressions: Service Date/Time: March 21:09 - CONCLUSION: No evidence of flow-limiting carotid stenosis. Andrea Ryan MD Aorta w/Runoff CTA 03/27/17 0000 Signed Impressions: Service Date/Time: March 14:33 - CONCLUSION: Moderate to severe lower extremity atherosclerotic vascular disease. Segmental occlusion of the distal left superficial femoral artery. Moderate to severe segmental stenosis of the mid to distal left popliteal artery. Right SFA plaques with moderate stenoses. Severe infrapopliteal runoff disease with single vessel runoff seen bilaterally as described. Costa Chen MD Procedures No procedures performed. Other Results Laboratory Tests Test 03/27/17 03/28/17 12:20 08:22 Activated Partial 25.3 SEC Thromboplast Time Hemoglobin A1c 8.8 % Triglycerides Level 113 MG/DL Cholesterol Level 222 MG/DL LDL Cholesterol 150 MG/DL HDL Cholesterol 49.0 MG/DL Cholesterol/HDL Ratio 4.53 RATIO Free Thyroxine 1.08 NG/DL Thyroid Stimulating Hormone 5.780 uIU/ML 3rd Gen White Blood Count 5.3 TH/MM3 Red Blood Count 5.03 MIL/MM3 Hemoglobin 14.6 GM/DL Hematocrit 42.7 % Mean Corpuscular Volume 84.9 FL Mean Corpuscular Hemoglobin 29.0 PG Mean Corpuscular Hemoglobin 34.2 % Concent Red Cell Distribution Width 13.7 % Platelet Count 173 TH/MM3 Mean Platelet Volume 8.9 FL Neutrophils (%) (Auto) 52.9 % Lymphocytes (%) (Auto) 34.2 % Monocytes (%) (Auto) 8.4 % Eosinophils (%) (Auto) 4.1 % Basophils (%) (Auto) 0.4 % Neutrophils # (Auto) 2.8 TH/MM3 Lymphocytes # (Auto) 1.8 TH/MM3 Monocytes # (Auto) 0.4 TH/MM3 Eosinophils # (Auto) 0.2 TH/MM3 Basophils # (Auto) 0.0 TH/MM3 CBC Comment DIFF FINAL Differential Comment Prothrombin Time 10.6 SEC Prothromb Time International 1.0 RATIO Ratio Sodium Level 139 MEQ/L Potassium Level 3.8 MEQ/L Chloride Level 104 MEQ/L Carbon Dioxide Level 25.3 MEQ/L Anion Gap 10 MEQ/L Blood Urea Nitrogen 13 MG/DL Creatinine 0.95 MG/DL Estimat Glomerular Filtration 96 ML/MIN Rate Random Glucose 289 MG/DL Calcium Level 8.8 MG/DL Total Bilirubin 0.7 MG/DL Direct Bilirubin 0.3 MG/DL Indirect Bilirubin 0.4 MG/DL Aspartate Amino Transf 28 U/L (AST/SGOT) Alanine Aminotransferase 33 U/L (ALT/SGPT) Alkaline Phosphatase 59 U/L Total Protein 7.7 GM/DL Albumin 3.2 GM/DL Objective Remarks GENERAL: No acute distress. SKIN: Focused skin assessment warm/dry. HEAD: Atraumatic. Normocephalic. EYES: Pupils equal and round. No scleral icterus. No injection or drainage. ENT: No nasal bleeding or discharge. Mucous membranes pink and moist. NECK: Trachea midline. No JVD. CARDIOVASCULAR: Regular rate and rhythm. No murmur appreciated. RESPIRATORY: No accessory muscle use. Clear to auscultation. Breath sounds equal bilaterally. GASTROINTESTINAL: Abdomen soft, non-tender, nondistended. Hepatic and splenic margins not palpable. MUSCULOSKELETAL: No obvious deformities. No clubbing. No cyanosis. No edema. There is a palpable dorsalis pedis pulse on the right side. On the left side there is a palpable posterior tibialis pulse however there is no palpable dorsalis pedis pulse on the left side. The skin of both lower extremities is somewhat shiny. There is no warmth erythema or asymmetric swelling on either side. NEUROLOGICAL: Awake and alert. No obvious cranial nerve deficits. Motor grossly within normal limits. Normal speech. PSYCHIATRIC: Appropriate mood and affect; insight and judgment normal. Medications and IVs Current Medications Medications (Trade) Dose Ordered Sig/Marita Route Start Time Stop Time Status Last Admin (D50w (Vial) Inj) 25 ml UNSCH PRN IV PUSH 03/27/17 18:30 (Glucagon Inj) 1 mg UNSCH PRN OTHER 03/27/17 18:30 (NS Flush) 2 ml UNSCH PRN IV FLUSH 03/27/17 18:30 (NS Flush) 2 ml BID IV FLUSH 03/27/17 21:00 03/28/17 09:00 (Tylenol) 650 mg Q4H PRN PO 03/27/17 18:30 (Zofran Inj) 4 mg Q6H PRN IVP 03/27/17 18:30 (Dulcolax Supp) 10 mg DAILY PRN RECTAL 03/27/17 18:30 (Colace) 100 mg Q12H PO 03/27/17 21:00 03/29/17 08:45 (Narcan Inj) 0.4 mg UNSCH PRN IV 03/27/17 18:30 (Plavix) 75 mg DAILY PO 03/27/17 19:45 03/29/17 08:46 (Lovenox Inj) 40 mg Q24H SQ 03/27/17 20:00 03/28/17 21:24 (Morphine Inj) 2 mg Q3H PRN IV PUSH 03/27/17 23:45 03/29/17 08:46 (Apresoline Inj) 10 mg Q30M PRN IV PUSH 03/27/17 23:45 03/28/17 06:34 (Catapres) 0.1 mg Q6H PRN PO 03/28/17 11:30 03/29/17 04:27 (Pill Splitter) 1 ea UNSCH PRN OTHER 03/28/17 12:15 (Pravachol) 20 mg HS PO 03/28/17 21:00 03/28/17 21:24 (Coreg) 6.25 mg Q12HR PO 03/28/17 21:00 03/29/17 08:46 A/P Assessment and Plan 1. 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 Moderate to Severe segmental stenosis of the mid to distal left popliteal artery. 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 full Cardiac workup continue. 2. DM II to continue sliding scale Hemoglobin A1C 8.8 Poorly controlled DM, added Levemir, sliding scale to Medium dose, and Insulin regular previous to every meal. 3. Peripheral Neuropathy 4. Hyperlipidemia start Pravachol and asked for liver enzymes 5. Tobacco dependence strongly recommended to stop smoking/ Marijuana dependence. 6. Accelerated Hypertension increased Coreg 12.5 mg BID, Clonidine 0.1 mg every six hours as needed for hypertension. 7. Subclinical Hypothyroidism will hold on hormonal management at this time. DVT prophylaxis with Lovenox Code Status Full code Discussed Condition With Patient and nurse. Discharge Planning once cleared by Vascular cardiovascular invasive specialist. Vaibhav Devine MD March 29, 2017 12:03
[2017-03-29] MEDS: SODIUM CHLORIDE 0.9% FLUSH 10 ML FLUSH IV FLUSH SCH ×2 (12:13→20:00)
[2017-03-29] MEDS: INSULIN DETEMIR 100 UNITS/ML VIAL SQ SCH (13:24)
[2017-03-29 16:00] VITALS: BP 183/84; PULSE 67; RESP 18; TEMP 98.7; O2SAT 96
[2017-03-29] MEDS: INSULIN HUMAN REGULAR 1,000 UNITS/10 ML VIAL SQ SCH (17:46)
[2017-03-29] MEDS: ENOXAPARIN SODIUM 40 MG/0.4 ML SYRINGE SQ SCH (19:49)
[2017-03-29 20:00] VITALS: BP 146/70; PULSE 67; PULSE 68; RESP 18; TEMP 98.3; O2SAT 94
[2017-03-29] MEDS: PRAVASTATIN SOD 20 MG TAB PO SCH (20:00)
[2017-03-29] MEDS: CARVEDILOL 12.5 MG TAB PO SCH (20:00)
[2017-03-30] VITALS (8 sets, daily range): BP systolic 157–173; BP diastolic 68–89; PULSE 66–96; RESP 16–22; TEMP 97.1–98.3; O2SAT 94–97
[2017-03-30] MEDS: MORPHINE SULFATE 4 MG/ML INJ IV PUSH PRN ×8 (01:53→23:59)
[2017-03-30] MEDS: INSULIN NovoLIN REGULAR SUPPLEMENTAL SCALE SQ SCH ×4 (06:37→21:00)
[2017-03-30] MEDS: CARVEDILOL 12.5 MG TAB PO SCH ×2 (07:37→21:07)
[2017-03-30] MEDS: CLOPIDOGREL 75 MG TAB PO SCH (07:37)
[2017-03-30] MEDS: DOCUSATE SODIUM 100 MG CAP PO SCH ×2 (07:37→21:07)
[2017-03-30] MEDS: INSULIN DETEMIR 100 UNITS/ML VIAL SQ SCH (07:45)
[2017-03-30] MEDS: SODIUM CHLORIDE 0.9% FLUSH 10 ML FLUSH IV FLUSH SCH ×2 (07:45→21:08)
[2017-03-30] MEDS: INSULIN HUMAN REGULAR 1,000 UNITS/10 ML VIAL SQ SCH ×3 (07:45→18:10)
--- NOTE | 2017-03-30 10:42 | PD.CAR.PN ---
CVT Progress Note Subjective/Hospital Course: Patient evaluated and examined Full consult dictated Thanks J 03/28/17 Patient with severe vascular occlusive disease and peroneal artery runoff on the right posterior tibial on the left Will probably schedule balloon angioplasty and crossing of the occlusion of the left SFA for Friday in endovascular suite Awaiting results of cardiac echo to make sure patient's condition tolerate general anesthesia 03/29/17 Patient with ischemia of the left leg scheduled for Friday endovascular suite balloon angioplasty of the left leg endarterectomy Doing okay at this time To add to the care 03/30/17 Left foot is slightly cooler than the right Patient is ischemic pain at rest in the entire foot and states now that he can' t walk more than to the bathroom without cramping of the calf Tomorrow for the left leg angioplasty possible arterectomy stent I discussed this with patient at length and this is a very precarious situation. In the best case scenario we may open up the vessel improve the blood supply but the long run patient is at high risk of losing this extremity no matter what In the worse case scenario procedure is associated with risk of distal embolization at which point patient may get and situation where he would require amputation at this admission Patient is aware of this and explained this to him at least 4 times and repeated it in detail Objective: Vital Signs Date Time Temp Pulse Resp B/P Pulse Ox O2 Delivery O2 Flow Rate FiO2 03/30/17 04:02 Room Air 03/30/17 04:00 98.2 76 16 164/78 94 03/30/17 00:00 Room Air 03/30/17 00:00 97.9 66 16 169/82 97 03/29/17 20:00 68 03/29/17 20:00 Room Air 03/29/17 20:00 98.3 67 18 146/70 94 03/29/17 16:00 98.7 67 18 183/84 96 03/29/17 11:45 98.6 79 18 155/70 94 Result Diagram: 03/28/1782103/28/17821 David Kasper MD March 30, 2017 10:42
--- NOTE | 2017-03-30 12:33 | HHI.PR ---
Subjective Remarks This is a pleasant 67 y/o Male who came to ER with Right Lower extremity pain for a few month, now is constant pain, worse on palpation Middle portion of the left calf to the great toe, no trauma, denies smoking history but has Diabetes mellitus II, pain worse on ambulation as per patient he has pain on his left leg for the last two months, worsening Claudication, today decided to come to ER for Evaluation status post Run off found Moderate to Severe lower extremity atherosclerotic vascular disease, segmental occlusion of the Distal left superficial femoral artery, Moderate to severe segmental stenosis of the mid to distal left popliteal artery, Right SFA plaques with moderate stenosis. seen by Vascular soil specialist for Angiography and Balloon angioplasty and stent placement. 03/29: Stable in his bedroom, increased dosages of Coreg to 12.5 mg bid to try to control his Accelerated Hypertension, also added Statins to his Hyperlipidemia, Discussed with nurse Miss Collado, ADA diet started, Levemir, scheduled regular insulin with every meal continue medium sliding scale. 03/30: Seen in his bedroom continue uncontrolled hypertension, discussed with nurse Miss Collado, Objective Vital Signs Date Time Temp Pulse Resp B/P Pulse Ox O2 Delivery O2 Flow Rate FiO2 03/30/17 04:02 Room Air 03/30/17 04:00 98.2 76 16 164/78 94 03/30/17 00:00 Room Air 03/30/17 00:00 97.9 66 16 169/82 97 03/29/17 20:00 68 03/29/17 20:00 Room Air 03/29/17 20:00 98.3 67 18 146/70 94 03/29/17 16:00 98.7 67 18 183/84 96 I/O 03/29/17 03/29/17 03/29/17 03/30/17 03/30/17 03/30/17 07:00 15:00 23:00 07:00 15:00 23:00 Intake Total 816 ml 480 ml 120 ml 180 ml Output Total 650 ml 300 ml Balance 166 ml 480 ml 120 ml -120 ml Intake Oral 240 ml 480 ml 120 ml 180 ml IV Total 576 ml Output Urine Total 650 ml 300 ml # Voids 3 2 # Bowel Movements 0 0 0 Result Diagram: 03/28/17 0803/28/17821 Imaging Last Impressions Carotid Artery Ultrasound 03/27/17 0000 Signed Impressions: Service Date/Time: March 21:09 - CONCLUSION: No evidence of flow-limiting carotid stenosis. Andrea Ryan MD Aorta w/Runoff CTA 03/27/17 0000 Signed Impressions: Service Date/Time: March 14:33 - CONCLUSION: Moderate to severe lower extremity atherosclerotic vascular disease. Segmental occlusion of the distal left superficial femoral artery. Moderate to severe segmental stenosis of the mid to distal left popliteal artery. Right SFA plaques with moderate stenoses. Severe infrapopliteal runoff disease with single vessel runoff seen bilaterally as described. Costa Chen MD Procedures No procedures performed. Other Results Laboratory Tests Test 03/27/17 03/28/17 12:20 08:22 Activated Partial 25.3 SEC Thromboplast Time Hemoglobin A1c 8.8 % Triglycerides Level 113 MG/DL Cholesterol Level 222 MG/DL LDL Cholesterol 150 MG/DL HDL Cholesterol 49.0 MG/DL Cholesterol/HDL Ratio 4.53 RATIO Free Thyroxine 1.08 NG/DL Thyroid Stimulating Hormone 5.780 uIU/ML 3rd Gen White Blood Count 5.3 TH/MM3 Red Blood Count 5.03 MIL/MM3 Hemoglobin 14.6 GM/DL Hematocrit 42.7 % Mean Corpuscular Volume 84.9 FL Mean Corpuscular Hemoglobin 29.0 PG Mean Corpuscular Hemoglobin 34.2 % Concent Red Cell Distribution Width 13.7 % Platelet Count 173 TH/MM3 Mean Platelet Volume 8.9 FL Neutrophils (%) (Auto) 52.9 % Lymphocytes (%) (Auto) 34.2 % Monocytes (%) (Auto) 8.4 % Eosinophils (%) (Auto) 4.1 % Basophils (%) (Auto) 0.4 % Neutrophils # (Auto) 2.8 TH/MM3 Lymphocytes # (Auto) 1.8 TH/MM3 Monocytes # (Auto) 0.4 TH/MM3 Eosinophils # (Auto) 0.2 TH/MM3 Basophils # (Auto) 0.0 TH/MM3 CBC Comment DIFF FINAL Differential Comment Prothrombin Time 10.6 SEC Prothromb Time International 1.0 RATIO Ratio Sodium Level 139 MEQ/L Potassium Level 3.8 MEQ/L Chloride Level 104 MEQ/L Carbon Dioxide Level 25.3 MEQ/L Anion Gap 10 MEQ/L Blood Urea Nitrogen 13 MG/DL Creatinine 0.95 MG/DL Estimat Glomerular Filtration 96 ML/MIN Rate Random Glucose 289 MG/DL Calcium Level 8.8 MG/DL Total Bilirubin 0.7 MG/DL Direct Bilirubin 0.3 MG/DL Indirect Bilirubin 0.4 MG/DL Aspartate Amino Transf 28 U/L (AST/SGOT) Alanine Aminotransferase 33 U/L (ALT/SGPT) Alkaline Phosphatase 59 U/L Total Protein 7.7 GM/DL Albumin 3.2 GM/DL Objective Remarks GENERAL: No acute distress. SKIN: Focused skin assessment warm/dry. HEAD: Atraumatic. Normocephalic. EYES: Pupils equal and round. No scleral icterus. No injection or drainage. ENT: No nasal bleeding or discharge. Mucous membranes pink and moist. NECK: Trachea midline. No JVD. CARDIOVASCULAR: Regular rate and rhythm. No murmur appreciated. RESPIRATORY: No accessory muscle use. Clear to auscultation. Breath sounds equal bilaterally. GASTROINTESTINAL: Abdomen soft, non-tender, nondistended. Hepatic and splenic margins not palpable. MUSCULOSKELETAL: No obvious deformities. No clubbing. No cyanosis. No edema. There is a palpable dorsalis pedis pulse on the right side. On the left side there is a palpable posterior tibialis pulse however there is no palpable dorsalis pedis pulse on the left side. The skin of both lower extremities is somewhat shiny. There is no warmth erythema or asymmetric swelling on either side. NEUROLOGICAL: Awake and alert. No obvious cranial nerve deficits. Motor grossly within normal limits. Normal speech. PSYCHIATRIC: Appropriate mood and affect; insight and judgment normal. Medications and IVs Current Medications Medications (Trade) Dose Ordered Sig/Marita Route Start Time Stop Time Status Last Admin (D50w (Vial) Inj) 25 ml UNSCH PRN IV PUSH 03/27/17 18:30 (Glucagon Inj) 1 mg UNSCH PRN OTHER 03/27/17 18:30 (NS Flush) 2 ml UNSCH PRN IV FLUSH 03/27/17 18:30 (NS Flush) 2 ml BID IV FLUSH 03/27/17 21:00 03/30/17 07:45 (Tylenol) 650 mg Q4H PRN PO 03/27/17 18:30 (Zofran Inj) 4 mg Q6H PRN IVP 03/27/17 18:30 (Dulcolax Supp) 10 mg DAILY PRN RECTAL 03/27/17 18:30 (Colace) 100 mg Q12H PO 03/27/17 21:00 03/30/17 07:37 (Narcan Inj) 0.4 mg UNSCH PRN IV 03/27/17 18:30 (Plavix) 75 mg DAILY PO 03/27/17 19:45 03/30/17 07:37 (Lovenox Inj) 40 mg Q24H SQ 03/27/17 20:00 03/29/17 19:49 (Morphine Inj) 2 mg Q3H PRN IV PUSH 03/27/17 23:45 03/30/17 07:37 (Catapres) 0.1 mg Q6H PRN PO 03/28/17 11:30 03/29/17 17:43 (Pill Splitter) 1 ea UNSCH PRN OTHER 03/28/17 12:15 (Pravachol) 20 mg HS PO 03/28/17 21:00 03/29/17 20:00 (Coreg) 12.5 mg Q12HR PO 03/29/17 21:00 03/30/17 07:37 (Levemir Inj) 10 units DAILY SQ 03/29/17 12:00 03/30/17 07:45 (NovoLIN R INJ) 5 units TIDAC SQ 03/29/17 17:00 03/30/17 07:45 A/P Assessment and Plan 1. 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 Moderate to Severe segmental stenosis of the mid to distal left popliteal artery. 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 full Cardiac workup continue. 2. DM II to continue sliding scale Hemoglobin A1C 8.8 Poorly controlled DM, continue Levemir switch to 20 units BID, continue Insulin scheduled with every meal 5 units, also continue Medium dose sliding scale. 3. Peripheral Neuropathy 4. Hyperlipidemia start Pravachol and asked for liver enzymes 5. Tobacco dependence strongly recommended to stop smoking/ Marijuana dependence. 6. Accelerated Hypertension increased Coreg 12.5 mg BID, Clonidine 0.1 mg once now and added Lisinopril 10 mg following closely. 7. Subclinical Hypothyroidism will hold on hormonal management at this time. DVT prophylaxis with Lovenox Code Status Full code Discussed Condition With Patient and nurse. Discharge Planning once cleared by Vascular soil specialist. Vaibhav Devine MD March 30, 2017 12:33
[2017-03-30] MEDS ORDERED: LISINOPRIL 10 MG TAB PO SCH (12:45)
[2017-03-30] MEDS ORDERED: cloNIDine HCL 0.1 MG TAB PO ONE (17:15)
[2017-03-30] MEDS: ENOXAPARIN SODIUM 40 MG/0.4 ML SYRINGE SQ SCH (21:07)
[2017-03-30] MEDS: PRAVASTATIN SOD 20 MG TAB PO SCH (21:07)
[2017-03-31] VITALS (14 sets, daily range): BP systolic 161–185; BP diastolic 70–100; PULSE 51–78; RESP 12–22; TEMP 97.2–98.6; O2SAT 92–97
[2017-03-31] MEDS: MORPHINE SULFATE 4 MG/ML INJ IV PUSH PRN ×5 (03:10→23:26)
[2017-03-31] MEDS: INSULIN NovoLIN REGULAR SUPPLEMENTAL SCALE SQ SCH ×4 (06:52→21:00)
[2017-03-31] MEDS: INSULIN HUMAN REGULAR 1,000 UNITS/10 ML VIAL SQ SCH ×3 (08:00→17:00)
[2017-03-31] MEDS: DOCUSATE SODIUM 100 MG CAP PO SCH ×2 (08:31→20:09)
[2017-03-31] MEDS: SODIUM CHLORIDE 0.9% FLUSH 10 ML FLUSH IV FLUSH SCH ×2 (08:31→20:09)
[2017-03-31] MEDS: CLOPIDOGREL 75 MG TAB PO SCH (08:33)
[2017-03-31] MEDS: CARVEDILOL 12.5 MG TAB PO SCH ×2 (08:33→20:09)
[2017-03-31] MEDS: LISINOPRIL 10 MG TAB PO SCH (08:33)
--- NOTE | 2017-03-31 08:33 | HHI.PR ---
Subjective Remarks This is a pleasant 67 y/o Male who came to ER with Right Lower extremity pain for a few month, now is constant pain, worse on palpation Middle portion of the left calf to the great toe, no trauma, denies smoking history but has Diabetes mellitus II, pain worse on ambulation as per patient he has pain on his left leg for the last two months, worsening Claudication, today decided to come to ER for Evaluation status post Run off found Moderate to Severe lower extremity atherosclerotic vascular disease, segmental occlusion of the Distal left superficial femoral artery, Moderate to severe segmental stenosis of the mid to distal left popliteal artery, Right SFA plaques with moderate stenosis. seen by Vascular commercial marketing specialist for Angiography and Balloon angioplasty and stent placement. 03/29: Stable in his bedroom, increased dosages of Coreg to 12.5 mg bid to try to control his Accelerated Hypertension, also added Statins to his Hyperlipidemia, Discussed with nurse Heaven, ADA diet started, Levemir, scheduled regular insulin with every meal continue medium sliding scale. 03/30: Seen in his bedroom continue uncontrolled hypertension 03/31: Stable seen before procedure no complaint, no nausea, vomit or diarrhea, his insulins were recommended to be re started when he comes back from procedure and eating again, continue managing uncontrolled blood pressure and blood sugar Objective Vital Signs Date Time Temp Pulse Resp B/P Pulse Ox O2 Delivery O2 Flow Rate FiO2 03/31/17 08:00 97.6 59 12 169/70 97 03/31/17 04:00 Room Air 03/31/17 04:00 98.4 66 20 181/86 97 03/31/17 00:00 98.6 71 22 167/75 96 03/31/17 00:00 Room Air 03/30/17 20:00 98.3 70 22 168/78 96 03/30/17 20:00 Room Air 03/30/17 19:52 96 03/30/17 17:42 21 03/30/17 16:00 97.1 70 16 160/68 97 03/30/17 13:50 97.8 70 18 173/89 95 03/30/17 09:00 97.8 75 18 157/73 97 I/O 03/30/17 03/30/17 03/30/17 03/31/17 03/31/17 03/31/17 07:00 15:00 23:00 07:00 15:00 23:00 Intake Total 180 ml 800 ml 480 ml Output Total 300 ml 2 ml Balance -120 ml 800 ml 478 ml Intake Oral 180 ml 800 ml 480 ml Output Urine Total 300 ml 2 ml # Voids 3 2 # Bowel Movements 0 0 0 Result Diagram: 03/28/1782103/28/17821 Imaging Last Impressions Carotid Artery Ultrasound 03/27/17 0000 Signed Impressions: Service Date/Time: March 21:09 - CONCLUSION: No evidence of flow-limiting carotid stenosis. Andrea Ryan MD Aorta w/Runoff CTA 03/27/17 0000 Signed Impressions: Service Date/Time: March 14:33 - CONCLUSION: Moderate to severe lower extremity atherosclerotic vascular disease. Segmental occlusion of the distal left superficial femoral artery. Moderate to severe segmental stenosis of the mid to distal left popliteal artery. Right SFA plaques with moderate stenoses. Severe infrapopliteal runoff disease with single vessel runoff seen bilaterally as described. Costa Chen MD Procedures No procedures performed. Other Results Laboratory Tests Test 03/27/17 03/28/17 12:20 08:22 Activated Partial 25.3 SEC Thromboplast Time Hemoglobin A1c 8.8 % Triglycerides Level 113 MG/DL Cholesterol Level 222 MG/DL LDL Cholesterol 150 MG/DL HDL Cholesterol 49.0 MG/DL Cholesterol/HDL Ratio 4.53 RATIO Free Thyroxine 1.08 NG/DL Thyroid Stimulating Hormone 5.780 uIU/ML 3rd Gen White Blood Count 5.3 TH/MM3 Red Blood Count 5.03 MIL/MM3 Hemoglobin 14.6 GM/DL Hematocrit 42.7 % Mean Corpuscular Volume 84.9 FL Mean Corpuscular Hemoglobin 29.0 PG Mean Corpuscular Hemoglobin 34.2 % Concent Red Cell Distribution Width 13.7 % Platelet Count 173 TH/MM3 Mean Platelet Volume 8.9 FL Neutrophils (%) (Auto) 52.9 % Lymphocytes (%) (Auto) 34.2 % Monocytes (%) (Auto) 8.4 % Eosinophils (%) (Auto) 4.1 % Basophils (%) (Auto) 0.4 % Neutrophils # (Auto) 2.8 TH/MM3 Lymphocytes # (Auto) 1.8 TH/MM3 Monocytes # (Auto) 0.4 TH/MM3 Eosinophils # (Auto) 0.2 TH/MM3 Basophils # (Auto) 0.0 TH/MM3 CBC Comment DIFF FINAL Differential Comment Prothrombin Time 10.6 SEC Prothromb Time International 1.0 RATIO Ratio Sodium Level 139 MEQ/L Potassium Level 3.8 MEQ/L Chloride Level 104 MEQ/L Carbon Dioxide Level 25.3 MEQ/L Anion Gap 10 MEQ/L Blood Urea Nitrogen 13 MG/DL Creatinine 0.95 MG/DL Estimat Glomerular Filtration 96 ML/MIN Rate Random Glucose 289 MG/DL Calcium Level 8.8 MG/DL Total Bilirubin 0.7 MG/DL Direct Bilirubin 0.3 MG/DL Indirect Bilirubin 0.4 MG/DL Aspartate Amino Transf 28 U/L (AST/SGOT) Alanine Aminotransferase 33 U/L (ALT/SGPT) Alkaline Phosphatase 59 U/L Total Protein 7.7 GM/DL Albumin 3.2 GM/DL Objective Remarks GENERAL: No acute distress. SKIN: Focused skin assessment warm/dry. HEAD: Atraumatic. Normocephalic. EYES: Pupils equal and round. No scleral icterus. No injection or drainage. ENT: No nasal bleeding or discharge. Mucous membranes pink and moist. NECK: Trachea midline. No JVD. CARDIOVASCULAR: Regular rate and rhythm. No murmur appreciated. RESPIRATORY: No accessory muscle use. Clear to auscultation. Breath sounds equal bilaterally. GASTROINTESTINAL: Abdomen soft, non-tender, nondistended. Hepatic and splenic margins not palpable. MUSCULOSKELETAL: No obvious deformities. No clubbing. No cyanosis. No edema. There is a palpable dorsalis pedis pulse on the right side. On the left side there is a palpable posterior tibialis pulse however there is no palpable dorsalis pedis pulse on the left side. The skin of both lower extremities is somewhat shiny. There is no warmth erythema or asymmetric swelling on either side. NEUROLOGICAL: Awake and alert. No obvious cranial nerve deficits. Motor grossly within normal limits. Normal speech. PSYCHIATRIC: Appropriate mood and affect; insight and judgment normal. Medications and IVs Current Medications Medications (Trade) Dose Ordered Sig/Marita Route Start Time Stop Time Status Last Admin (D50w (Vial) Inj) 25 ml UNSCH PRN IV PUSH 03/27/17 18:30 (Glucagon Inj) 1 mg UNSCH PRN OTHER 03/27/17 18:30 (NS Flush) 2 ml UNSCH PRN IV FLUSH 03/27/17 18:30 (NS Flush) 2 ml BID IV FLUSH 03/27/17 21:00 03/30/17 21:08 (Tylenol) 650 mg Q4H PRN PO 03/27/17 18:30 (Zofran Inj) 4 mg Q6H PRN IVP 03/27/17 18:30 (Dulcolax Supp) 10 mg DAILY PRN RECTAL 03/27/17 18:30 (Colace) 100 mg Q12H PO 03/27/17 21:00 03/30/17 21:07 (Narcan Inj) 0.4 mg UNSCH PRN IV 03/27/17 18:30 (Plavix) 75 mg DAILY PO 03/27/17 19:45 03/30/17 07:37 (Lovenox Inj) 40 mg Q24H SQ 03/27/17 20:00 03/30/17 21:07 (Morphine Inj) 2 mg Q3H PRN IV PUSH 03/27/17 23:45 03/31/17 06:04 (Catapres) 0.1 mg Q6H PRN PO 03/28/17 11:30 03/29/17 17:43 (Pill Splitter) 1 ea UNSCH PRN OTHER 03/28/17 12:15 (Pravachol) 20 mg HS PO 03/28/17 21:00 03/30/17 21:07 (Coreg) 12.5 mg Q12HR PO 03/29/17 21:00 03/30/17 21:07 (NovoLIN R INJ) 5 units TIDAC SQ 03/29/17 17:00 03/30/17 18:10 (Prinivil) 20 mg DAILY PO 03/31/17 09:00 (Levemir Inj) 20 units DAILY SQ 03/31/17 09:00 Hold A/P Assessment and Plan 1. 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 Moderate to Severe segmental stenosis of the mid to distal left popliteal artery. discussed at this time with Vascular medicare contact specialist doctor David Kasper and recommended to stop Heparin and continue Plavix and Aspirin, today will go for Angiography with Balloon angioplasty and stent placement Poor director long term care prognosis, may end in BKA. 2. DM II to continue sliding scale Hemoglobin A1C 8.8 Poorly controlled DM, continue Levemir switch to 20 units BID, continue Insulin scheduled with every meal 5 units, also continue Medium dose sliding scale. on hold insulin at this time and re start when comes back fro procedure. 3. Peripheral Neuropathy 4. Hyperlipidemia start Pravachol and asked for liver enzymes 5. Tobacco dependence strongly recommended to stop smoking/ Marijuana dependence. 6. Accelerated Hypertension increased Coreg 12.5 mg BID, Clonidine 0.1 mg once now and added Lisinopril 10 mg following closely. 7. Subclinical Hypothyroidism will hold on hormonal management at this time. DVT prophylaxis with Lovenox Code Status Full code Discussed Condition With Patient and nurse. Discharge Planning once cleared by Vascular commercial marketing specialist. Vaibhav Devine MD March 31, 2017 08:33
[2017-03-31] MEDS ORDERED: INSULIN DETEMIR 100 UNITS/ML VIAL SQ SCH (09:00)
[2017-03-31] MEDS ORDERED: MIDAZOLAM HCL 5 MG/5 ML VIAL ONE (12:49)
[2017-03-31] MEDS ORDERED: fentaNYL CITRATE 250 MCG/5 ML AMP ONE (12:50)
[2017-03-31] MEDS ORDERED: ceFAZolin 2 GM PREMIX 50 ML ONE (14:14)
[2017-03-31] MEDS ORDERED: NITROGLYCERIN 1000 MCG/5 ML VIAL OTHER ONE (15:00)
[2017-03-31] MEDS ORDERED: ALTEPLASE RECOMBINANT 2 MG VIAL OTHER ONE (15:00)
[2017-03-31] MEDS ORDERED: HYDROmorphone HCL PF 2 MG/ML VIAL ONE (15:13)
[2017-03-31] MEDS ORDERED: HEPARIN SODIUM - IV 10,000 UNITS/10 ML VIAL ONE (15:19)
[2017-03-31] MEDS ORDERED: HEPARIN-D5W INJ 250 ML IV SCH (15:30)
[2017-03-31] MEDS ORDERED: IODIXANOL 320 MG/ML 50 ML VIAL (for RAD SPEC) I-ARTERIAL ONE (15:31)
--- NOTE | 2017-03-31 15:56 | PD.RAD ---
Post Procedure Progress Note Pre Procedure Diagnosis: (1) Ischemia of left lower extremity Post Procedure Diagnosis: (1) Ischemia of left lower extremity Procedure Date: March 31, 2017 Supervising Radiologist: Eric Braden JR Proceduralist/Assist: Hong Jones, RT(R), Massiel Saleh RT(R)(CV) Anesthesia: Conscious Sedation Plan of Activity Patient to Unit: ROPU Patient Condition: Good See PACS Report for procedural detail/treatment Vascular-Arterial Procedure Procedure 1 Procedure Site: Left Leg Procedure(s): Angiogram, Angioplasty, Atherectomy, Thrombolysis Access Access Site(s): Right Femoral Artery Closure Site(s): Right vascular closure device Findings: Angio of LLE shows chronic occlusion of distal SFA with single vessel (PT) runoff. Successful atherectomy of SFA. Embolization to PT trunk which did not respond to IA TPA. Mechanical thrombectomy successful with re-established flow to PT. Plan Continue heparin. Jr. Sampson,Eric Romero MD March 31, 2017 15:56
--- NOTE | 2017-03-31 16:57 | PD.CAR.PN ---
CVT Progress Note Subjective/Hospital Course: Patient evaluated and examined Full consult dictated Thanks J 03/28/17 Patient with severe vascular occlusive disease and peroneal artery runoff on the right posterior tibial on the left Will probably schedule balloon angioplasty and crossing of the occlusion of the left SFA for Friday in endovascular suite Awaiting results of cardiac echo to make sure patient's condition tolerate general anesthesia 03/29/17 Patient with ischemia of the left leg scheduled for Friday endovascular suite balloon angioplasty of the left leg endarterectomy Doing okay at this time To add to the care 03/30/17 Left foot is slightly cooler than the right Patient is ischemic pain at rest in the entire foot and states now that he can' t walk more than to the bathroom without cramping of the calf Tomorrow for the left leg angioplasty possible arterectomy stent I discussed this with patient at length and this is a very precarious situation. In the best case scenario we may open up the vessel improve the blood supply but the long run patient is at high risk of losing this extremity no matter what In the worse case scenario procedure is associated with risk of distal embolization at which point patient may get and situation where he would require amputation at this admission Patient is aware of this and explained this to him at least 4 times and repeated it in detail 03/31/17 Patient underwent successful arterectomy and balloon angioplasty of the distal SFA and popliteal arteries Patient now has 1 vessel continuous flow to the foot via the posterior tibial artery Will remain on heparin and Plavix and then we will switch patient to likely a factor X a inhibitor Foot is now much better patient has a strong posterior tibial pulse, but unfortunately arterectomy is sometimes do not last long due to the degree of disease involved and need for endarterectomy in the first place Objective: Vital Signs Date Time Temp Pulse Resp B/P Pulse Ox O2 Delivery O2 Flow Rate FiO2 03/31/17 16:15 51 16 171/92 94 03/31/17 15:45 59 16 167/87 96 03/31/17 15:30 97.5 55 18 161/93 92 03/31/17 12:00 97.2 71 16 185/89 97 03/31/17 10:23 78 03/31/17 08:00 97.6 59 12 169/70 97 03/31/17 04:00 Room Air 03/31/17 04:00 98.4 66 20 181/86 97 03/31/17 00:00 98.6 71 22 167/75 96 03/31/17 00:00 Room Air 03/30/17 20:00 98.3 70 22 168/78 96 03/30/17 20:00 Room Air 03/30/17 19:52 96 03/30/17 17:42 21 Result Diagram: 03/28/17 0822 03/28/17 0822 David Kasper MD March 31, 2017 16:57
[2017-03-31] MEDS: PRAVASTATIN SOD 20 MG TAB PO SCH (20:09)
[2017-03-31 21:52] LABS: APTT (PATIENT) 35.9 SEC (24.3-30.1)
[2017-04-01] VITALS: BP 178/78; PULSE 82; RESP 18; TEMP 98.8; O2SAT 95
[2017-04-01] MEDS: MORPHINE SULFATE 4 MG/ML INJ IV PUSH PRN ×4 (02:27→12:31)
[2017-04-01 03:09] LABS: APTT (PATIENT) 42.2 SEC (24.3-30.1)
[2017-04-01 04:00] VITALS: BP 143/88; PULSE 73; RESP 18; TEMP 98.7; O2SAT 96
[2017-04-01] MEDS: INSULIN NovoLIN REGULAR SUPPLEMENTAL SCALE SQ SCH ×2 (07:00→11:47)
[2017-04-01 08:05] VITALS: BP 159/69; PULSE 76; RESP 18; TEMP 98.4; O2SAT 96
[2017-04-01] MEDS: CLOPIDOGREL 75 MG TAB PO SCH (09:05)
[2017-04-01] MEDS: LISINOPRIL 10 MG TAB PO SCH (09:05)
[2017-04-01] MEDS: DOCUSATE SODIUM 100 MG CAP PO SCH (09:05)
[2017-04-01] MEDS: CARVEDILOL 12.5 MG TAB PO SCH (09:05)
[2017-04-01] MEDS: SODIUM CHLORIDE 0.9% FLUSH 10 ML FLUSH IV FLUSH SCH (09:05)
[2017-04-01] MEDS: INSULIN HUMAN REGULAR 1,000 UNITS/10 ML VIAL SQ SCH ×2 (09:11→11:48)
[2017-04-01 09:50] LABS: APTT (PATIENT) 36.8 SEC (24.3-30.1)
--- NOTE | 2017-04-01 10:03 | PD.CAR.PN ---
CVT Progress Note Subjective/Hospital Course: Patient evaluated and examined Full consult dictated Thanks Serg 03/28/17 Patient with severe vascular occlusive disease and peroneal artery runoff on the right posterior tibial on the left Will probably schedule balloon angioplasty and crossing of the occlusion of the left SFA for Friday in endovascular suite Awaiting results of cardiac echo to make sure patient's condition tolerate general anesthesia 03/29/17 Patient with ischemia of the left leg scheduled for Friday endovascular suite balloon angioplasty of the left leg endarterectomy Doing okay at this time To add to the care 03/30/17 Left foot is slightly cooler than the right Patient is ischemic pain at rest in the entire foot and states now that he can' t walk more than to the bathroom without cramping of the calf Tomorrow for the left leg angioplasty possible arterectomy stent I discussed this with patient at length and this is a very precarious situation. In the best case scenario we may open up the vessel improve the blood supply but the long run patient is at high risk of losing this extremity no matter what In the worse case scenario procedure is associated with risk of distal embolization at which point patient may get and situation where he would require amputation at this admission Patient is aware of this and explained this to him at least 4 times and repeated it in detail 03/31/17 Patient underwent successful arterectomy and balloon angioplasty of the distal SFA and popliteal arteries Patient now has 1 vessel continuous flow to the foot via the posterior tibial artery Will remain on heparin and Plavix and then we will switch patient to likely a factor X a inhibitor Foot is now much better patient has a strong posterior tibial pulse, but unfortunately arterectomy is sometimes do not last long due to the degree of disease involved and need for endarterectomy in the first place 04/01/17 Status post successful arthrectomy and angioplasty of distal SFA and popliteal artery Patient now has in continuam flow to the foot through patent SFA popliteal artery into the posterior tibial artery. Unfortunately this still constitutes poor outflow via only 1 vessel and its only question of time when this is all going come to arabella Newby progression and natural history of disease dictate patency rates anywhere from 3 months to about 3 years and there is no way to predict which way this is going to go I've explained this to the patient Physical exam reveals strong dopplerable posterior tibial pulse on the left and foot is warm On the right patient does not have posterior tibial or is always pedis vessels because blood flow is via the peroneal artery that then connects to the dorsal arch Therefore both legs are at risk of ischemia and eventual loss Would place patient on a anticoagulant probably factor X a inhibitor and Pletal Follow-up with me in about a month in the office Objective: Vital Signs Date Time Temp Pulse Resp B/P Pulse Ox O2 Delivery O2 Flow Rate FiO2 04/01/17 08:05 98.4 76 18 159/69 96 04/01/17 04:00 98.7 73 18 143/88 96 04/01/17 00:00 98.8 82 18 178/78 95 04/01/17 00:00 Room Air 04/01/17 00:00 Room Air 03/31/17 20:32 65 03/31/17 20:00 Room Air 03/31/17 20:00 98.5 70 18 178/77 94 03/31/17 17:30 61 16 165/94 96 03/31/17 17:00 57 18 163/86 95 03/31/17 16:45 58 16 174/85 97 03/31/17 16:15 51 16 171/92 94 03/31/17 16:00 56 18 169/100 94 03/31/17 15:45 59 16 167/87 96 03/31/17 15:30 97.5 55 18 161/93 92 03/31/17 12:00 97.2 71 16 185/89 97 03/31/17 10:23 78 Labs: Laboratory Tests Test 04/01/17 04/01/17 02:45 09:11 Activated Partial 42.2 SEC 36.8 SEC Thromboplast Time (24.3-30.1) (24.3-30.1) Result Diagram: 03/28/1782103/28/17821 David Kasper MD April 01, 2017 10:03 am
--- NOTE | 2017-04-01 10:17 | HHI.PR ---
Subjective Remarks This is a pleasant 67 y/o Male who came to ER with Right Lower extremity pain for a few month, now is constant pain, worse on palpation Middle portion of the left calf to the great toe, no trauma, denies smoking history but has Diabetes mellitus II, pain worse on ambulation as per patient he has pain on his left leg for the last two months, worsening Claudication, today decided to come to ER for Evaluation status post Run off found Moderate to Severe lower extremity atherosclerotic vascular disease, segmental occlusion of the Distal left superficial femoral artery, Moderate to severe segmental stenosis of the mid to distal left popliteal artery, Right SFA plaques with moderate stenosis. seen by Vascular service desk specialist for Angiography and Balloon angioplasty and stent placement. 03/29: Stable in his bedroom, increased dosages of Coreg to 12.5 mg bid to try to control his Accelerated Hypertension, also added Statins to his Hyperlipidemia, Discussed with nurse Miss Collado, ADA diet started, Levemir, scheduled regular insulin with every meal continue medium sliding scale. 03/30: Seen in his bedroom continue uncontrolled hypertension 03/31: Stable seen before procedure no complaint, no nausea, vomit or diarrhea, his insulins were recommended to be re started when he comes back from procedure and eating again, continue managing uncontrolled blood pressure and blood sugar 04/01: Seen in his bedroom in the presence of nurse Miss Deras Doctor David Kasper in to see patient he performed Arthrectomy and Angioplasty of distal SFA and popliteal artery, good flow through patient SFA, popliteal artery in to posterior tibial artery, poor outflow via only 1 vessel and poor chcf prognosis, with risk for ischemia on both legs and eventual loss, to continue anticoagulation asked for Pletal and Xarelto. no nausea, vomit or diarrhea. Objective Vital Signs Date Time Temp Pulse Resp B/P Pulse Ox O2 Delivery O2 Flow Rate FiO2 04/01/17 08:05 98.4 76 18 159/69 96 04/01/17 04:00 98.7 73 18 143/88 96 04/01/17 00:00 98.8 82 18 178/78 95 04/01/17 00:00 Room Air 04/01/17 00:00 Room Air 03/31/17 20:32 65 03/31/17 20:00 Room Air 03/31/17 20:00 98.5 70 18 178/77 94 03/31/17 17:30 61 16 165/94 96 03/31/17 17:00 57 18 163/86 95 03/31/17 16:45 58 16 174/85 97 03/31/17 16:15 51 16 171/92 94 03/31/17 16:00 56 18 169/100 94 03/31/17 15:45 59 16 167/87 96 03/31/17 15:30 97.5 55 18 161/93 92 03/31/17 12:00 97.2 71 16 185/89 97 03/31/17 10:23 78 I/O 03/31/17 03/31/17 03/31/17 04/01/17 04/01/17 04/01/17 07:00 15:00 23:00 07:00 15:00 23:00 Intake Total 302 ml 301 ml Output Total 300 ml 950 ml Balance 2 ml -649 ml Intake Oral 240 ml 240 ml IV Total 62 ml 61 ml Output Urine Total 300 ml 950 ml # Voids 2 # Bowel Movements 0 0 0 Result Diagram: 03/28/1782103/28/17821 Imaging Last Impressions Carotid Artery Ultrasound 03/27/17 0000 Signed Impressions: Service Date/Time: March 21:09 - CONCLUSION: No evidence of flow-limiting carotid stenosis. Andrea Ryan MD Aorta w/Runoff CTA 03/27/17 0000 Signed Impressions: Service Date/Time: March 14:33 - CONCLUSION: Moderate to severe lower extremity atherosclerotic vascular disease. Segmental occlusion of the distal left superficial femoral artery. Moderate to severe segmental stenosis of the mid to distal left popliteal artery. Right SFA plaques with moderate stenoses. Severe infrapopliteal runoff disease with single vessel runoff seen bilaterally as described. Costa Chen MD Procedures No procedures performed. Other Results Status post Arthrectomy and Angioplasty of distal SFA and popliteal artery, good flow through patient SFA, popliteal artery in to posterior tibial artery, poor outflow via only 1 vessel. Objective Remarks GENERAL: No acute distress. SKIN: Focused skin assessment warm/dry. HEAD: Atraumatic. Normocephalic. EYES: Pupils equal and round. No scleral icterus. No injection or drainage. ENT: No nasal bleeding or discharge. Mucous membranes pink and moist. NECK: Trachea midline. No JVD. CARDIOVASCULAR: Regular rate and rhythm. No murmur appreciated. RESPIRATORY: No accessory muscle use. Clear to auscultation. Breath sounds equal bilaterally. GASTROINTESTINAL: Abdomen soft, non-tender, nondistended. Hepatic and splenic margins not palpable. MUSCULOSKELETAL: No obvious deformities. No clubbing. No cyanosis. No edema. There is a palpable dorsalis pedis pulse on the right side. On the left side there is a palpable posterior tibialis pulse however there is no palpable dorsalis pedis pulse on the left side. The skin of both lower extremities is somewhat shiny. There is no warmth erythema or asymmetric swelling on either side. NEUROLOGICAL: Awake and alert. No obvious cranial nerve deficits. Motor grossly within normal limits. Normal speech. PSYCHIATRIC: Appropriate mood and affect; insight and judgment normal. Medications and IVs Current Medications Medications (Trade) Dose Ordered Sig/Marita Route Start Time Stop Time Status Last Admin (D50w (Vial) Inj) 25 ml UNSCH PRN IV PUSH 03/27/17 18:30 (Glucagon Inj) 1 mg UNSCH PRN OTHER 03/27/17 18:30 (NS Flush) 2 ml UNSCH PRN IV FLUSH 03/27/17 18:30 03/31/17 11:23 (NS Flush) 2 ml BID IV FLUSH 03/27/17 21:00 04/01/17 09:05 (Tylenol) 650 mg Q4H PRN PO 03/27/17 18:30 (Zofran Inj) 4 mg Q6H PRN IVP 03/27/17 18:30 (Dulcolax Supp) 10 mg DAILY PRN RECTAL 03/27/17 18:30 (Colace) 100 mg Q12H PO 03/27/17 21:00 04/01/17 09:05 (Narcan Inj) 0.4 mg UNSCH PRN IV 03/27/17 18:30 (Plavix) 75 mg DAILY PO 03/27/17 19:45 04/01/17 09:05 (Morphine Inj) 2 mg Q3H PRN IV PUSH 03/27/17 23:45 04/01/17 09:16 (Catapres) 0.1 mg Q6H PRN PO 03/28/17 11:30 03/29/17 17:43 (Pill Splitter) 1 ea UNSCH PRN OTHER 03/28/17 12:15 (Pravachol) 20 mg HS PO 03/28/17 21:00 03/31/17 20:09 (Coreg) 12.5 mg Q12HR PO 03/29/17 21:00 04/01/17 09:05 (NovoLIN R INJ) 5 units TIDAC SQ 03/29/17 17:00 04/01/17 09:11 (Prinivil) 20 mg DAILY PO 03/31/17 09:00 04/01/17 09:05 Insulin Detemir 20 units 20 units DAILY SQ 03/31/17 09:00 Hold (Heparin-D5W Inj) 250 ml @ 0 mls/hr TITRATE IV 03/31/17 15:30 03/31/17 17:33 (Pletal) 100 mg BIDAC PO 04/01/17 10:15 UNV (Eliquis) 5 mg BID PO 04/01/17 10:15 UNV A/P Assessment and Plan 1. 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 Moderate to Severe segmental stenosis of the mid to distal left popliteal artery. discussed at this time with Vascular networking specialist doctor David Kasper and recommended to stop Heparin and continue Plavix and Aspirin, Status post Arthrectomy and Angioplasty of distal SFA and popliteal artery, good flow through patient SFA, popliteal artery in to posterior tibial artery, poor outflow via only 1 vessel. and poor long term care administrator prognosis, with risk for ischemia on both legs and eventual loss, to continue anticoagulation asked for Pletal and Eliquis 2. DM II to continue sliding scale Hemoglobin A1C 8.8 Poorly controlled DM, continue Levemir switch to 20 units BID, continue Insulin scheduled with every meal 5 units, also continue Medium dose sliding scale. continue medicine at home and titration with PCP and Vascular Surgery. 3. Peripheral Neuropathy 4. Hyperlipidemia start Pravachol, liver enzymes within normal limits. 5. Tobacco dependence strongly recommended to stop smoking/ Marijuana dependence. 6. Accelerated Hypertension Improved continue blood pressure medicine and titration by PCP. 7. Subclinical Hypothyroidism will hold on hormonal management at this time. I had the pleasure to talk about the case with Vascular service desk specialist Doctor David Kasper appreciated input and recommendations. DVT prophylaxis with Lovenox Code Status Full code Discussed Condition With Patient, nurse and Vascular networking specialist. Discharge Planning Discharge Home Vaibhav Devine MD April 01, 2017 10:17
[2017-04-01] MEDS ORDERED: APIX5TAB PO (10:29)
[2017-04-01] MEDS ORDERED: CARV12.5 PO (10:29)
[2017-04-01] MEDS ORDERED: CILO100T PO (10:29)
[2017-04-01] MEDS ORDERED: LISI10TA3 PO (10:29)
[2017-04-01] MEDS ORDERED: PRAV20TA PO (10:30)
--- NOTE | 2017-04-01 10:36 | HHI.DS ---
Discharge Summary Admission Date March 27, 2017 at 18:26 Discharge Date: April 01, 2017 Admitting Diagnosis SFA Occlusion (1) Ischemia of left lower extremity ICD Code: I99.8 Diagnosis: Principal (2) Superficial femoral artery occlusion ICD Code: I77.9 Diagnosis: Principal (3) Noncompliance ICD Code: Z91.19 Diagnosis: Principal (4) Essential hypertension ICD Code: I10 Diagnosis: Principal (5) Diabetes mellitus ICD Code: E11.9 Diagnosis: Principal Procedures Status post Arthrectomy and Angioplasty of distal SFA and popliteal artery, good flow through patient SFA, popliteal artery in to posterior tibial artery, poor outflow via only 1 vessel. Brief History - From Admission This is a pleasant 67 y/o Male who came to ER with Right Lower extremity pain for a few month, now is constant pain, worse on palpation Middle portion of the left calf to the great toe, no trauma, denies smoking history but has Diabetes mellitus II, pain worse on ambulation as per patient he has pain on his left leg for the last two months, worsening Claudication, today decided to come to ER for Evaluation status post Run off found Moderate to Severe lower extremity atherosclerotic vascular disease, segmental occlusion of the Distal left superficial femoral artery, Moderate to severe segmental stenosis of the mid to distal left popliteal artery, Right SFA plaques with moderate stenosis. seen by Vascular account management specialist for Angiography and Balloon angioplasty and stent placement. CBC/BMP: 03/28/17 0822 03/28/17 0822 Significant Findings Laboratory Tests Test 03/31/17 04/01/17 04/01/17 20:55 02:45 09:11 Activated Partial 35.9 SEC 42.2 SEC 36.8 SEC Thromboplast Time (24.3-30.1) (24.3-30.1) (24.3-30.1) Imaging Last Impressions Carotid Artery Ultrasound 03/27/17 0000 Signed Impressions: Service Date/Time: March 21:09 - CONCLUSION: No evidence of flow-limiting carotid stenosis. Andrea Ryan MD Aorta w/Runoff CTA 03/27/17 0000 Signed Impressions: Service Date/Time: March 14:33 - CONCLUSION: Moderate to severe lower extremity atherosclerotic vascular disease. Segmental occlusion of the distal left superficial femoral artery. Moderate to severe segmental stenosis of the mid to distal left popliteal artery. Right SFA plaques with moderate stenoses. Severe infrapopliteal runoff disease with single vessel runoff seen bilaterally as described. Costa Chen MD PE at Discharge GENERAL: No acute distress. SKIN: Focused skin assessment warm/dry. HEAD: Atraumatic. Normocephalic. EYES: Pupils equal and round. No scleral icterus. No injection or drainage. ENT: No nasal bleeding or discharge. Mucous membranes pink and moist. NECK: Trachea midline. No JVD. CARDIOVASCULAR: Regular rate and rhythm. No murmur appreciated. RESPIRATORY: No accessory muscle use. Clear to auscultation. Breath sounds equal bilaterally. GASTROINTESTINAL: Abdomen soft, non-tender, nondistended. Hepatic and splenic margins not palpable. MUSCULOSKELETAL: No obvious deformities. No clubbing. No cyanosis. No edema. There is a palpable dorsalis pedis pulse on the right side. On the left side there is a palpable posterior tibialis pulse however there is no palpable dorsalis pedis pulse on the left side. The skin of both lower extremities is somewhat shiny. There is no warmth erythema or asymmetric swelling on either side. NEUROLOGICAL: Awake and alert. No obvious cranial nerve deficits. Motor grossly within normal limits. Normal speech. PSYCHIATRIC: Appropriate mood and affect; insight and judgment normal. Hospital Course This is a pleasant 67 y/o Male who came to ER with Right Lower extremity pain for a few month, now is constant pain, worse on palpation Middle portion of the left calf to the great toe, no trauma, denies smoking history but has Diabetes mellitus II, pain worse on ambulation as per patient he has pain on his left leg for the last two months, worsening Claudication, today decided to come to ER for Evaluation status post Run off found Moderate to Severe lower extremity atherosclerotic vascular disease, segmental occlusion of the Distal left superficial femoral artery, Moderate to severe segmental stenosis of the mid to distal left popliteal artery, Right SFA plaques with moderate stenosis. seen by Vascular account management specialist for Angiography and Balloon angioplasty and stent placement. 03/29: Stable in his bedroom, increased dosages of Coreg to 12.5 mg bid to try to control his Accelerated Hypertension, also added Statins to his Hyperlipidemia, Discussed with nurse Miss Collado, ADA diet started, Levemir, scheduled regular insulin with every meal continue medium sliding scale. 03/30: Seen in his bedroom continue uncontrolled hypertension 03/31: Stable seen before procedure no complaint, no nausea, vomit or diarrhea, his insulins were recommended to be re started when he comes back from procedure and eating again, continue managing uncontrolled blood pressure and blood sugar 04/01: Seen in his bedroom in the presence of nurse Miss Deras Doctor David Kasper in to see patient he performed Arthrectomy and Angioplasty of distal SFA and popliteal artery, good flow through patient SFA, popliteal artery in to posterior tibial artery, poor outflow via only 1 vessel and poor intermediate manager prognosis, with risk for ischemia on both legs and eventual loss, to continue anticoagulation asked for Pletal and Xarelto. no nausea, vomit or diarrhea. Assessment and Plan 1. 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 Moderate to Severe segmental stenosis of the mid to distal left popliteal artery. discussed at this time with Vascular plastic surgery technician doctor David Kasper and recommended to stop Heparin and continue Plavix and Aspirin, Status post Arthrectomy and Angioplasty of distal SFA and popliteal artery, good flow through patient SFA, popliteal artery in to posterior tibial artery, poor outflow via only 1 vessel. and poor half-way prognosis, with risk for ischemia on both legs and eventual loss, to continue anticoagulation asked for Pletal and Eliquis 2. DM II to continue sliding scale Hemoglobin A1C 8.8 Poorly controlled DM, continue Levemir switch to 20 units BID, continue Insulin scheduled with every meal 5 units, also continue Medium dose sliding scale. continue medicine at home and titration with PCP and Vascular Surgery. 3. Peripheral Neuropathy 4. Hyperlipidemia start Pravachol, liver enzymes within normal limits. 5. Tobacco dependence strongly recommended to stop smoking/ Marijuana dependence. 6. Accelerated Hypertension Improved continue blood pressure medicine and titration by PCP. 7. Subclinical Hypothyroidism will hold on hormonal management at this time. I had the pleasure to talk about the case with Vascular account management specialist Doctor David Kasper appreciated input and recommendations. DVT prophylaxis with Lovenox Code Status Full code Discussed Condition With Patient, nurse and Vascular plastic surgery technician. Discharge Planning Discharge Home Pt Condition on Discharge: Good Discharge Disposition: Discharge Home Discharge Time: > 30 minutes Discharge Instructions DIET: Follow Instructions for: Heart Healthy Diet, Diabetic Diet Activities you can perform: Regular-No Restrictions Vaibhav Devine MD April 01, 2017 10:35
--- NOTE | 2017-04-01 10:54 | RADRPT ---
EXAM DATE/TIME: 03/31/2017 12:38 [facility] COMPARISON: No previous studies available for comparison. INDICATIONS : Patient with rest pain involving the left lower extremity.. 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 ENCOUNTER: Initial ACUITY: > 1 year PAIN SCORE: 10/10 LOCATION: Left Leg FLUORO TIME: 31.7 minutes IMAGE SERIES: 25 ACCESS SITE: Right Femoral artery SEDATION TIME: 120 minutes CONTRAST: 1.) 114 cc Omnipaque (iohexol) 350 MEDICATION(S): 1.) 5 mg midazolam (Versed) IV 2.) 350 mcg fentanyl (Sublimaze) IV 3.) 1 mg hydromorphone (Dilaudid) IV 4.) 200 mcg Nitroglycerin IV 5.) 4 mg alteplase 6.) 3,000 units Heparin IV DEVICE(S): 1.) Left superficial femoral artery 6.0mm x 60mm 135cm CONSUMER MARKETING MANAGER balloon 2.) Left popliteal artery 6.0mm SpideRX embolic protection 3.) Left superficial femoral artery ev3 turbohawk LS-M atherectomy device 4.) Right common femoral artery 8FR Angio-Seal PROCEDURE : 1. Ultrasound-guided puncture of the access site. 2. Angiography of the access site prior to closure device. 3. Conscious sedation with continuous EKG and Oximetry monitoring. 4. Percutaneous closure of the access site. 5. Angiography of the left lower terminate 6. Angiography of the left tibioperoneal trunk 7. atherectomy of the left superficial femoral artery/popliteal artery 8. Angioplasty of the left superficial femoral artery/popliteal artery 9. Catheter directed thrombolysis of the tibioperoneal trunk 10. Intra-arterial spasmolytic administration 11. Suction thrombectomy of the left tibioperoneal trunk The risks, benefits and alternatives to the procedure were explained and verbal and written consent w as obtained. The site was prepped in sterile fashion. Full sterile technique was used, including ca p, mask, sterile gloves and gown and a large sterile sheet. Hand hygiene and 2% chlorhexidine and/or betadine/alcohol prep was utilized per protocol for cutaneous antisepsis. The skin and subcutaneous tissues were infiltrated with local anesthetic solution. With ultrasound and fluoroscopic guidance the right common femoral artery was punctured and a vascula r sheath was placed. Angiography of the common femoral artery was performed for evaluation prior to percutaneous closure device placement. This angiogram of the right external iliac artery shows tandem stenoses measuring 50%. And on the flush catheter was passed into the abdominal aorta and a pelvic angiogram performed Highli ne diffuse calcified plaque throughout the inflow vessels bilaterally. Tandem stenoses of the right e xternal iliac artery. These are 50% in nature. Left inflow is patent. Selection of the contralateral external iliac artery was performed in a staged left lower shunt angio gram performed. These images reveal multilevel SFA disease. Multiple tandem areas of mild luminal andrez rowing are seen proximally which are felt to be hemodynamically insignificant. There is chronic occlu paulina of the distal SFA extending through the abductor canal and proximal above the papilla artery. Th ere is a focal 40-50% stenosis of the [id number] popliteal artery. The below-knee popliteal arter y is patent. Severe trifurcation disease noted with the sole runoff to the foot via a diseased medicinal plant picker ior tibial artery. After reviewing the diagnostic images it was felt that atherectomy be performed through the occluded segment of the SFA as well as [id number] popliteal artery. An 8 [place] Raabe sheath was placed in to the mid left SFA. A large vessel [employer] atherectomy device was utilized for atherectomy. A #6 SpideRX was deployed in the below-knee popliteal artery for protection. Successful atherectomy of th e occluded segment was performed through the SFA and popliteal. Lack of flow was noted despite the at herectomy. Low pressure angioplasty was performed in the same area. The sheath was pulled back into t he common femoral artery and a repeat angiogram shows reestablishment of antegrade flow through the p reviously occluded segment. An embolic event did take place into the posterior tibial and tibioperone al trunk. Catheter directed TPA was instilled without resolution. Suction thrombectomy was performed with removal of a large piece of thrombus. This reestablish flow into the posterior tibial artery as previously seen. Hemostasis was obtained with the prescribed medicated closure device. Conscious sedation was perform ed with the prescribed dosages and duration as above in the presence of an independent trained radiol ogy nurse to assist in the monitoring of the patient. EKG and oximetry remained stable throughout th e procedure. CONCLUSION: Chronic occlusion of the left distal SFA and immediate adjacent [id number] popliteal artery with successful thrombectomy and reestablishment of flow through the occluded segment. Runoff to the foot remains a diseased posterior tibial artery. Tandem 50% stenoses noted involving the right external il iac artery. Eric Braden Jr., MD on April 01, 2017 at 10:41 Board Certified Radiologist. This report was verified electronically.
[2017-04-01] MEDS ORDERED: APIXABAN 5 MG TABLET PO SCH (11:00)
[2017-04-01 12:05] VITALS: BP 158/68; PULSE 74; RESP 18; TEMP 98.1; O2SAT 96
[2017-04-01] MEDS ORDERED: CILOSTAZOL 100 MG TAB PO SCH (16:00)
== END 2017-04-01 13:21 | disposition home or self-care (01) | DRG 271 ==
LOC: NEPD 10:58 → NEDA 18:26 → N04A 21:43
PROVIDERS: ADMIT Internal Medicine; ATTEND Internal Medicine
PROC: B41D1ZZ Fluoroscopy of Aorta and Bilateral Lower Extremity Arteries using Low Osmolar Contrast (ICD-10-PCS; 2017-03-27)
PROC: 04CK3ZZ Extirpation of Matter from Right Femoral Artery, Percutaneous Approach (ICD-10-PCS; principal; 2017-03-31)
PROC: 047L3ZZ Dilation of Left Femoral Artery, Percutaneous Approach (ICD-10-PCS; 2017-03-31)
PROC: 04CN3ZZ Extirpation of Matter from Left Popliteal Artery, Percutaneous Approach (ICD-10-PCS; 2017-03-31)
PROC: 047N3ZZ Dilation of Left Popliteal Artery, Percutaneous Approach (ICD-10-PCS; 2017-03-31)
PROC: 04CS3ZZ Extirpation of Matter from Left Posterior Tibial Artery, Percutaneous Approach (ICD-10-PCS; 2017-03-31)
PROC: 3E05317 Introduction of Other Thrombolytic into Peripheral Artery, Percutaneous Approach (ICD-10-PCS; 2017-03-31)
PROC: B41F1ZZ Fluoroscopy of Right Lower Extremity Arteries using Low Osmolar Contrast (ICD-10-PCS; 2017-03-31)
DX: I70.211 Atherosclerosis of native arteries of extremities with intermittent claudication, right leg (principal); I70.92 Chronic total occlusion of artery of the extremities; I75.022 Atheroembolism of left lower extremity; E11.42 Type 2 diabetes mellitus with diabetic polyneuropathy; E11.51 Type 2 diabetes mellitus with diabetic peripheral angiopathy without gangrene; Z90.3 Acquired absence of stomach [part of]; I10 Essential (primary) hypertension; E78.5 Hyperlipidemia, unspecified; E03.9 Hypothyroidism, unspecified; F12.20 Cannabis dependence, uncomplicated; F10.10 Alcohol abuse, uncomplicated; Z79.4 Long term (current) use of insulin; Z85.028 Personal history of other malignant neoplasm of stomach; Z91.19 Patient's noncompliance with other medical treatment and regimen
CPT/HCPCS: 36247; 37184; 37225; 75635; 75716; 75774; 76937; 80048; 80061; 80076; 82948; 83036; 84439; 84443; 85025; 85610; 85730; 93306; 93880; 96365; 96375; 96376; C1714; C1725; C1760; C1769; C1884; C1887; C1894; J0360; J0690; J1170; J1644; J1650; J1815; J2250; J2270; J2997; J3010; J7030; Q9967

== ENCOUNTER 2017-04-03 14:09 | Emergency (ER) | payer MEDICARE, MEDICAID, OTHER ==
[~2017-04-03] VITALS: Ht 165.1 cm; Wt 78.0 kg
[~2017-04-03 14:09] MED LIST changes: +APIX5TAB PO; +CARV12.5 PO; +CILO100T PO; +LANTUS2P SQ; -LANTUSP SQ; +LISI10TA3 PO; -NOVOLOGP2 SQ; +NOVOLOGSS SQ; +PRAV20TA PO; -RANI150 PO; -VITA100017 PO; +VITA10007 PO; -ZOFR4TAB3 SL
[2017-04-03 14:11] VITALS: BP 174/79; PULSE 95; RESP 14; TEMP 98.2; O2SAT 97
--- NOTE | 2017-04-03 14:18 | PD ---
Physical Exam Time Seen by Provider: 14:15 Narrative 67yo M c/o left foot swelling and pain x3 days. Just discharged Friday from here after being admitted for the same complaint. Reports paraesthesias to foot , but denies loss of sensation. Denies fever, vomiting. Patient seen in triage. Awaiting bed placement. VS reviewed. Data Data Last Documented VS Vital Signs Date Time Temp Pulse Resp B/P Pulse Ox O2 Delivery O2 Flow Rate FiO2 04/03/17 14:11 98.2 95 14 174/79 97 MDM Supervised Visit with JESSY: Trena Chavarria April 03, 2017 14:18
--- NOTE | 2017-04-03 15:07 | PD.CAR.PN ---
CVT Progress Note Subjective/Hospital Course: Patient with recent L leg angiolasty left superficial femoral artery and popliteal artery with reestablishment of the flow to the left leg Patient now comes to the emergency room stating that his left leg is somewhat swollen and painful Physical examination reveals slight swelling of the left foot with excellent capillary refill Patient has palpable right dorsalis pedis pulse and dopplerable right posterior tibial pulse On the left leg which was recently reconstructed by endovascular approach patient has a strong anterior tibial pulse and now strong posterior tibial pulse Foot is warm well perfused with normal capillary refill This is an excellent outcome and cannot get better than this. Patient has no increased flow to the foot and hence some minimal swelling It should be noted patient is noncompliant and never filled his prescription for either factor X a inhibitor or any other medications as prescribed Follow-up with my office in 2 months Objective: Vital Signs Date Time Temp Pulse Resp B/P Pulse Ox O2 Delivery O2 Flow Rate FiO2 04/03/17 14:11 98.2 95 14 174/79 97 David Kasper MD April 03, 2017 15:07
--- NOTE | 2017-04-03 15:16 | PD ---
HPI Chief Complaint: Pain: Acute or Chronic Time Seen by Provider: 15:06 Travel History International Travel<30 days: No Contact w/Intl Traveler<30days: No Traveled to known affect area: No History of Present Illness HPI 67-year-old male here for evaluation of left leg pain and swelling. The patient was discharged 2 days ago after arthrotomy for left SFA occlusion. He has not filled his antiplatelet prescription as well as his pain meds. He is also not filled his pain medications. States that yesterday he noticed more swelling than there is today. He was concerned, so decided to present to the emergency department for evaluation. Dr Kasper with his vascular surgeon. PFSH Past Medical History Cancer: Yes (STOMACH TUMOR) Cardiovascular Problems: No Chemotherapy: No Diabetes: Yes Patient Takes Glucophage: No Diminished Hearing: No Endocrine: Yes Gastrointestinal Disorders: Yes Genitourinary: No Immune Disorder: No Medical other: Yes (LLE OCCLUSION ) Musculoskeletal: No Neurologic: No Psychiatric: No Reproductive: No Respiratory: No Radiation Therapy: No Past Surgical History Abdominal Surgery: Yes (PARTIAL GASTRECTOMY FOR GI STROMAL TUMORE WITH ABCESS) Cardiac Surgery: No Ear Surgery: No Endocrine Surgery: No Eye Surgery: No Genitourinary Surgery: No Gynecologic Surgery: No Oral Surgery: No Pacemaker: No Thoracic Surgery: No Other Surgery: Yes (ANGIOPLASTY /ARTHRECTOMY OF DISTAL SFA ) Social History Alcohol Use: Yes (RARELY) Tobacco Use: No Substance Use: No (DENIES) Allergies-Medications (Allergen,Severity, Reaction): Coded Allergies: No Known Allergies (Unverified , 03/27/17) Reported Meds & Prescriptions Reported Meds & Active Scripts Active Pravachol (Pravastatin) 20 Mg Tab 20 Mg PO HS Lisinopril 10 Mg Tab 20 Mg PO DAILY Cilostazol 100 Mg Tab 100 Mg PO BIDAC Coreg (Carvedilol) 12.5 Mg Tab 12.5 Mg PO Q12HR Eliquis (Apixaban) 5 Mg Tab 5 Mg PO BID Reported Lantus Inj (Insulin Glargine) 1,000 Unit/10 Ml Vial 15 Units SQ HS Novolog Inj (Insulin Aspart) 100 Unit/Ml Inj 30 Unit SQ BID Vitamin B Complex (B-Complex Vitamins) 1 Tab 1 Tab PO DAILY Vitamin C (Ascorbic Acid) 1,000 Mg Tab 3,000 Mg PO DAILY Review of Systems Except as stated in HPI: all other systems reviewed are Neg Physical Exam Narrative GENERAL: Well-developed, well-nourished, comfortable, no acute distress. SKIN: Focused skin assessment warm/dry. No rash. HEAD: Atraumatic. Normocephalic. EYES: Pupils equal and round. No scleral icterus. No injection or drainage. ENT: Mucous membranes pink and moist. NECK: Trachea midline. No JVD. CARDIOVASCULAR: Regular rate and rhythm. Bilateral dorsalis pedis pulses are brisk and equal with brisk capillary refill in bilateral feet. MUSCULOSKELETAL: No obvious deformities. No clubbing. No cyanosis. Mild left lower extremity edema from foot to knee. No right lower extremity edema. All compartments in bilateral lower extremities are supple. NEUROLOGICAL: Awake and alert. No obvious cranial nerve deficits. Motor grossly within normal limits. Normal speech. PSYCHIATRIC: Appropriate mood and affect; insight and judgment normal. Data Data Last Documented VS Vital Signs Date Time Temp Pulse Resp B/P Pulse Ox O2 Delivery O2 Flow Rate FiO2 04/03/17 14:11 98.2 95 14 174/79 97 MDM Medical Decision Making Medical Screen Exam Complete: Yes Emergency Medical Condition: Yes Medical Record Reviewed: Yes Differential Diagnosis Reperfusion pain, reocclusion unlikely, DVT unlikely, cellulitis unlikely Narrative Course Shortly after the patient arrived to the emergency department, the patient was evaluated by his vascular surgeon Dr. Kasper who states that the patient's symptoms are to be expected after reperfusion of the left lower extremity. Bilateral feet are warm with brisk capillary refill with brisk dorsalis pedis pulses bilaterally. He states the patient can be safely discharged home with outpatient follow-up in his office as scheduled. Patient encouraged to fill medications that were prescribed in 2 days ago. He was informed on when to return to the emergency department. He verbalizes understanding and agreement with plan. Diagnosis Primary Impression: Left leg pain Referrals: David Kasper MD 1 week Additional Instructions: Follow-up with vascular surgeon Dr. Kasper as scheduled. Return to the emergency department forcing symptoms or any other concerns. Disposition: 01 DISCHARGE HOME Condition: Stable Thomas Herbert MD April 03, 2017 15:16
[2017-04-03 15:30] VITALS: BP 175/83; PULSE 88; RESP 18; O2SAT 97
== END 2017-04-03 15:36 | disposition home or self-care (01) ==
LOC: NEPD 14:09
DX: M79.605 Pain in left leg (principal)
CPT/HCPCS: 99283

== ENCOUNTER 2017-09-04 18:55 | Emergency (ER) | payer MEDICARE, MEDICAID ==
[~2017-09-04] VITALS: Ht 165.1 cm; Wt 74.0 kg
[2017-09-04 18:57] VITALS: BP 149/74; PULSE 92; RESP 16; TEMP 98.7; O2SAT 94
--- NOTE | 2017-09-04 19:04 | PD ---
Physical Exam Date Seen by Provider: Sep 04, 2017 Time Seen by Provider: 19:01 Narrative 67-year-old Afro-[place]ian male presents to our department with history of hyperglycemia. Patient is noted to have a blood sugar at triage of 480. Patient states he took 30 units of his own NovoLog insulin 30 minutes prior to arrival. Patient denies any other medical issues currently. He has no pain. He has no known drug allergies. Data Data Last Documented VS Vital Signs Date Time Temp Pulse Resp B/P (MAP) Pulse Ox O2 Delivery O2 Flow Rate FiO2 09/04/17 18:57 98.7 92 16 149/74 (99) 94 Room Air [facility] Medical Record Reviewed: Yes Supervised Visit with JESSY: Yes Narrative Course Blood sugar is 480. Vital signs shown to be stable currently. Patient is awaiting bed placement. Condition: Stable Jesus Barragan Sep 04, 2017 19:04
[2017-09-04] MEDS ORDERED: LANTUS2P SQ (19:13)
[2017-09-04 19:30] LABS: BLOOD GAS VENOUS BASE EXCESS 2.8 mmol/L (-2-2); BLOOD GAS VENOUS HCO3 27 mmol/L (22-26); BLOOD GAS VENOUS O2 CONTENT 7.8 Vol % (9.0-17.0); BLOOD GAS VENOUS O2 HGB SAT 41 % (70-76); BLOOD GAS VENOUS PCO2 46 mmHg (44-48); BLOOD GAS VENOUS PO2 25 mmHg (35-40); BLOOD GAS VENOUS pH 7.39 (7.360-7.400); TEMP CORR TO 98.6
[2017-09-04] MEDS ORDERED: SODIUM CHLOR 0.9% 1000 ML INJ 1,000 ML IV ONE (19:30)
[2017-09-04 19:31] LABS: CRITICAL VALUE YES; FIO2 21 %; STAT YES
--- NOTE | 2017-09-04 19:33 | PD ---
HPI Chief Complaint: Diabetic Time Seen by Provider: 19:11 Travel History International Travel<30 days: No Contact w/Intl Traveler<30days: No Traveled to known affect area: No History of Present Illness HPI 67-year-old male presents to the emergency department for evaluation of hyperglycemia. Patient is a poor historian. Apparently, his blood sugars car running high yesterday. He states it is 408 yesterday. He took his blood sugar for the first time today at 6 PM and it was high. Patient states he took 30 units of his NovoLog insulin after he checked his blood sugar came the emergency department. Patient reports history of hypertension and diabetes type 2. He cannot remember what medications he is on for his hypertension. He states he takes Lantus 30 units at night and NovoLog 30 units before meals. 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 Patient denies any pain or any other complaints at this time. When asked if he has ever been in DKA, he states that he was 6 months ago at this hospital. However, I see no record of this. PFSH Past Medical History Cancer: Yes (STOMACH TUMOR) Cardiovascular Problems: No Chemotherapy: No Diabetes: Yes Patient Takes Glucophage: No Diminished Hearing: No Endocrine: Yes Gastrointestinal Disorders: Yes Genitourinary: No Hypertension: Yes Immune Disorder: No Musculoskeletal: No Neurologic: No Psychiatric: No Reproductive: No Respiratory: No Radiation Therapy: No Triglycerides - High: Yes Tetanus Vaccination: Unknown Influenza Vaccination: No Past Surgical History Abdominal Surgery: Yes (removed tumor) Cardiac Surgery: No Ear Surgery: No Endocrine Surgery: No Eye Surgery: No Genitourinary Surgery: No Gynecologic Surgery: No Oral Surgery: No Pacemaker: No Thoracic Surgery: No Other Surgery: Yes (ANGIOPLASTY /ARTHRECTOMY OF DISTAL SFA ) Social History Alcohol Use: No Tobacco Use: No Substance Use: No Allergies-Medications (Allergen,Severity, Reaction): Coded Allergies: No Known Allergies (Unverified , 04/03/17) Reported Meds & Prescriptions Reported Meds & Active Scripts Active Lisinopril 10 Mg Tab 20 Mg PO DAILY Reported Lantus Inj (Insulin Glargine) 1,000 Unit/10 Ml Vial 30 Units SQ HS Novolog Inj (Insulin Aspart) 100 Unit/Ml Inj 30 Unit SQ BID Review of Systems Except as stated in HPI: all other systems reviewed are Neg Physical Exam Narrative GENERAL: Well-nourished, well-developed male patient, afebrile. SKIN: Focused skin assessment warm/dry. HEAD: Normocephalic. Atraumatic. EYES: No scleral icterus. No injection or drainage. NECK: Supple, trachea midline. No JVD or lymphadenopathy. CARDIOVASCULAR: Regular rate and rhythm without murmurs, gallops, or rubs. RESPIRATORY: Breath sounds equal bilaterally. No accessory muscle use. Lungs sounds are clear to auscultation. GASTROINTESTINAL: Abdomen soft, non-tender, nondistended. MUSCULOSKELETAL: No cyanosis, or edema. BACK: Nontender without obvious deformity. No CVA tenderness. Data Data Last Documented VS Vital Signs Date Time Temp Pulse Resp B/P (MAP) Pulse Ox O2 Delivery O2 Flow Rate FiO2 09/04/17 20:58 81 20 140/72 (94) 98 Room Air 09/04/17 18:57 98.7 Orders Orders ^ Insert Iv (09/04/17 19:18) Complete Blood Count With Diff (09/04/17 19:18) Comprehensive Metabolic Panel (09/04/17 19:18) Magnesium (Mg) (09/04/17 19:18) Beta Hydroxybutyrate (Acetone) (09/04/17 19:18) Urinalysis - C+S If Indicated (09/04/17 19:18) Blood Gas Venous (Vbg) (09/04/17 19:18) Sodium Chlor 0.9% 1000 Ml Inj (Ns 1000 M (09/04/17 19:30) Ecg Monitoring (09/04/17 19:18) Oximetry (09/04/17 19:18) Insulin Human Regular Inj (Novolin R Inj (09/04/17 21:00) Insulin Human Regular Inj (Novolin R Inj (09/04/17 21:00) Labs Laboratory Tests Test 09/04/17 19:15 09/04/17 19:20 09/04/17 19:50 Blood Gas Puncture Site Blood Gas Patient Temperature 98.6 Venous Blood pH 7.39 Venous Blood Partial Pressure CO2 46 mmHg Venous Blood Partial Pressure O2 25 mmHg Venous Blood HCO3 27 mmol/L Venous Blood Oxygen Saturation 41 % Venous Blood Oxygen Content 7.8 Vol % Venous Blood Base Excess 2.8 mmol/L Blood Gas Inspired Oxygen 21 % White Blood Count 5.8 TH/MM3 Red Blood Count 5.11 MIL/MM3 Hemoglobin 15.2 GM/DL Hematocrit 43.7 % Mean Corpuscular Volume 85.5 FL Mean Corpuscular Hemoglobin 29.6 PG Mean Corpuscular Hemoglobin Concent 34.7 % Red Cell Distribution Width 13.0 % Platelet Count 245 TH/MM3 Mean Platelet Volume 8.9 FL Neutrophils (%) (Auto) 52.6 % Lymphocytes (%) (Auto) 35.7 % Monocytes (%) (Auto) 7.9 % Eosinophils (%) (Auto) 2.9 % Basophils (%) (Auto) 0.9 % Neutrophils # (Auto) 3.0 TH/MM3 Lymphocytes # (Auto) 2.1 TH/MM3 Monocytes # (Auto) 0.5 TH/MM3 Eosinophils # (Auto) 0.2 TH/MM3 Basophils # (Auto) 0.1 TH/MM3 CBC Comment DIFF FINAL Differential Comment Blood Urea Nitrogen 9 MG/DL Creatinine 1.20 MG/DL Random Glucose 428 MG/DL Total Protein 9.0 GM/DL Albumin 3.8 GM/DL Calcium Level 9.0 MG/DL Magnesium Level 1.8 MG/DL Alkaline Phosphatase 70 U/L Aspartate Amino Transf (AST/SGOT) 42 U/L Alanine Aminotransferase (ALT/SGPT) 39 U/L Total Bilirubin 0.7 MG/DL Sodium Level 131 MEQ/L Potassium Level 4.5 MEQ/L Chloride Level 98 MEQ/L Carbon Dioxide Level 27.2 MEQ/L Anion Gap 6 MEQ/L Estimat Glomerular Filtration Rate 73 ML/MIN B-Hydroxybutyrate 0.20 MMOL/L Urine Color YELLOW Urine Turbidity CLEAR Urine pH 5.5 Urine Specific Gallagher 1.019 Urine Protein NEG mg/dL Urine Glucose (UA) 1000 mg/dL Urine Ketones NEG mg/dL Urine Occult Blood NEG Urine Nitrite NEG Urine Bilirubin NEG Urine Urobilinogen LESS THAN 2.0 MG/DL Urine Leukocyte Esterase NEG Urine RBC LESS THAN 1 /hpf Urine WBC LESS THAN 1 /hpf Microscopic Urinalysis Comment CULT NOT INDICATED MDM Medical Decision Making Medical Screen Exam Complete: Yes Emergency Medical Condition: Yes Medical Record Reviewed: Yes Differential Diagnosis Hyperglycemia versus DKA versus electrolyte abnormality Narrative Course 67-year-old male presents to the emergency department for evaluation of hyperglycemia. Patient is type II diabetic. He states his blood sugar started running high yesterday. Blood glucose is 430. CBC, CMP, magnesium, beta hydroxybutyrate, UA, VBG are ordered and pending. Patient is given normal saline 1 L IV bolus. CBC is unremarkable. CMP shows hyperglycemia of 428. Magnesium is 1.8. Beta hydroxybutyrate 0.20. UA shows 1000 glucose, otherwise negative. VBG shows pH shows 7.392, bicarbonate 45.9.\ Patient is given regular insulin 5 units IV. Recheck blood glucose is 251. Patient will be discharged to follow-up with his primary care physician. Patient verbalizes agreement. Diagnosis Primary Impression: Hyperglycemia Additional Impression: Diabetes mellitus Qualified Codes: E11.8 - Type 2 diabetes mellitus with unspecified complications Referrals: Primary Care Physician call for appointment Patient Instructions: Diabetic Hyperglycemia (ED), General Instructions Additional Instructions: Continue your insulin as prescribed. Monitor blood glucose closely. Follow-up with your primary care physician. Return to the emergency department for any acute worsening of symptoms. Med/Other Pt SpecificInfo: No Change to Meds Disposition: 01 DISCHARGE HOME Condition: Stable Tamica Sanford Sep 04, 2017 19:33
[2017-09-04 19:35] VITALS: RESP 17; O2SAT 98
[2017-09-04 19:50] LABS: BASOPHIL # 0.1 TH/MM3 (0-0.2); BASOPHIL % 0.9 % (0.0-2.0); EOSINOPHIL # 0.2 TH/MM3 (0-0.4); EOSINOPHIL % 2.9 % (0.0-4.0); HEMATOCRIT 43.7 % (39.0-51.0); HEMO FLAGS DIFF FINAL; LYMPH % 35.7 % (9.0-44.0); LYMPHOCYTE # 2.1 TH/MM3 (1.0-4.8); MEAN CELL VOLUME 85.5 FL (80.0-100.0); MEAN CORPUSCULAR HEMOGLOBIN 29.6 PG (27.0-34.0); MEAN CORPUSCULAR HGB CONC 34.7 % (32.0-36.0); MONO % 7.9 % (0.0-8.0); NEUT % 52.6 % (16.0-70.0); PLATELET COUNT 245 TH/MM3 (150-450); RED BLOOD COUNT 5.11 MIL/MM3 (4.50-5.90); WHITE BLOOD COUNT 5.8 TH/MM3 (4.0-11.0)
[2017-09-04 20:13] LABS: ALKALINE PHOSPHATASE 70 U/L (45-117); ALT (GPT) 39 U/L (12-78); ANION GAP 6 MEQ/L (5-15); AST (GOT) 42 U/L (15-37); BICARBONATE 27.2 MEQ/L (21.0-32.0); BLOOD UREA NITROGEN 9 MG/DL (7-18); CHLORIDE 98 MEQ/L (98-107); GLOMERULAR FILTRATION RATE 73 ML/MIN (>89); MAGNESIUM 1.8 MG/DL (1.5-2.5); SODIUM (NA) 131 MEQ/L (136-145); TOTAL BILIRUBIN ADULT 0.7 MG/DL (0.2-1.0)
[2017-09-04 20:15] LABS: BLOOD, URINE NEG (NEG); GLUCOSE,URINE 1000 mg/dL (NEG); KETONE, URINE NEG (NEG); NITRITE,URINE NEG (NEG); PH, URINE 5.5 (5.0-8.5); URINE COLOR YELLOW (YELLW/STRAW)
[2017-09-04 20:26] LABS: POTASSIUM 4.5 MEQ/L (3.5-5.1)
[2017-09-04 20:29] LABS: COMMENT (UR) CULT NOT INDICATED; CULTURE IF INDICATED CULT NOT INDICATED
[2017-09-04 20:58] VITALS: BP 140/72; PULSE 81; RESP 20; O2SAT 98
[2017-09-04] MEDS ORDERED: INSULIN HUMAN REGULAR 1,000 UNITS/10 ML VIAL IV PUSH ONE (21:00)
[2017-09-04] MEDS ORDERED: INSULIN HUMAN REGULAR 1,000 UNITS/10 ML VIAL SQ ONE (21:00)
[2017-09-04 22:48] VITALS: BP 144/80
== END 2017-09-04 23:13 | disposition home or self-care (01) ==
LOC: NEPE 18:55
DX: E11.65 Type 2 diabetes mellitus with hyperglycemia (principal); I10 Essential (primary) hypertension
CPT/HCPCS: 80053; 81001; 82010; 82805; 83735; 85025; 96361; 96374; 99284; J1815; J7030